=== PATIENT | male | born 1970 | race Caucasian/White ===

== ENCOUNTER → 2016-08-14 | Outpatient (CLI) | payer BC ==
[~2016-08-14] MED LIST: AMLO-110 PO; ASPI81TA28 PO; ATOR-24 PO; ISOS30TA3 PO; METO25TA56 PO; OMEG10007 PO
== END | disposition home or self-care (01) ==
LOC: C.LAB 19:14
PROVIDERS: ATTEND Family Medicine
DX: R07.9 Chest pain, unspecified (principal)

== ENCOUNTER 2021-05-09 15:43 | Observation (INO) ==
[2021-05-09 16:22] LABS: Basophils # (auto) 0.04 K/uL (0-0.2); Basophils % (auto) 0.7 %; Eosinophils # (auto) 0.06 K/uL (0-0.5); Eosinophils % (auto) 1.1 %; Hematocrit (blood only) 43.8 % (42-52); Hemoglobin 16.1 g/dL (14.0-18.0); Immature Granulocytes # (auto) 0.02 K/uL (0.00-0.02); Immature Granulocytes % (auto) 0.4 %; Lymphocytes # (auto) 1.18 K/uL (1.2-3.4); Lymphocytes % (auto) 21.7 %; Mean Corpuscular Hemoglobin 32.1 pg (25-34); Mean Corpuscular Hgb Conc 36.8 g/dL (32-36); Mean Corpuscular Volume 87.3 fL (80-100); Mean Platelet Volume 11.8 fL (7.4-10.4); Monocytes # (auto) 0.37 K/uL (0.11-0.59); Monocytes % (auto) 6.8 %; Neutrophils # (auto) 3.76 K/uL (1.4-6.5); Neutrophils % (auto) 69.3 %; Platelet Count 180 K/uL (130-400); RDW Coefficient of Variation 12.6 % (11.5-14.5); RDW Standard Deviation 39.9 fL (36.4-46.3); Red Blood Count 5.02 M/uL (4.7-6.1); White Blood Count 5.43 K/uL (4.8-10.8)
[2021-05-09 16:47] LABS: Appearance Urine Clear (Clear); Bilirubin Urine Negative (Negative); Blood Urine Negative (Negative); Color Urine Yellow; Glucose Urine UA 3+ (Negative); Ketones Urine Trace (Negative); Leukocyte Esterase Urine Negative (Negative); Nitrite Urine Negative (Negative); Protein Urine Negative (Negative); Specific Gravity Urine 1.039 (1.000-1.030); Urobilinogen Urine Negative (Negative); pH Urine 5.5 (4.5-7.5)
[2021-05-09 16:49] LABS: Albumin Globulin Ratio 1.5 (0.9-2); Albumin Level 4.6 gm/dl (3.4-5.0); BUN Creatinine Ratio 16.8 (10-20); Calcium 9.5 mg/dl (8.5-10.1); Creatinine Clr Calc Pharmacy 100.4 ml/min; Est GFR (African American) 86.1 ml/min; Est GFR (Non-African American) 74.3 ml/min; Potassium 4.4 mmol/L (3.5-5.1); Total Protein 7.6 gm/dl (6.0-8.3)
--- NOTE | 2021-05-09 17:59 | Emergency Department Note ---
Impression & Plan Acute hyperglycemia, Hx of CABG, Increased thirst, Hyponatremia ED Provider Note NAME: GURU DAVIS AGE: 50 SEX: M : 1970 ARRIVES VIA: Walk-In INFORMANT: Patient, ED PROVIDER(S): Marcos Asencio MD Chief Complaint: Hyperglycemia HPI: Patient presents due to concern for hypoglycemia. The patient has been having increasing thirst and drinking water and a friend suggested that he check his blood sugar. The patient checked this and noticed that was greater than 600. Presenting here to the emergency department the patient's blood sugar was greater than 500. Patient denies any infectious symptoms. The patient does have a prior history of Hodgkin lymphoma status post radiation and surgical treatment. Patient is a non-smoker but does chew tobacco. Patient does drink occasional alcohol with denies any drug use. Patient denies any fevers chills chest pain shortness of breath nausea or vomiting. Patient denies any infectious symptoms. The patient denies any prior history of autoimmune disor bj. Patient denies any leg swelling. ROS: See HPI for pertinent positives and negatives. A total of 10 systems were reviewed and otherwise negative. Past medical history: See below Surgical history: See below Social history: See below Physical Exam: GENERAL: NAD, wearing a mask, non-toxic. EYE EXAM: Normal conjunctiva. PERRL, no anisocoria and EOM's grossly intact w/o pain. NECK: Supple, no nuchal rigidity, no adenopathy, non-tender. No signs of meningismus. LUNGS: Clear to auscultation. Normal chest wall mechanics. HEART: NSR, no MRG. ABDOMEN: Abdomen soft, non-tender, normo-active bowel sounds, no masses, no rebound or guarding. BACK: No CVA TTP. SKIN: No rashes and no bruising. UPPER EXTREMITIES: Upper extremities are grossly normal. LOWER EXTREMITIES: Grossly normal, no edema. NEURO EXAM: A&O x3, cranial nerves II-XII grossly intact, normal speech, moves all 4 extremities on command w/o issue. Differential diagnoses: Diabetes, infection, dehydration, metabolic abnormality, hypo/hyperglycemia, electrolyte disturbance, anemia, hypoxia, cardiac sources, intracerebral event, toxicologic, neurologic, as well as other pathologies. Course: Patient was seen and evaluated the bedside. Full history physical exam was performed. EKG interpreted by me Sinus tachycardia, rate of 101, normal intervals, left axis deviation, no obvious ST elevations. Imaging Studies: See Below Cardiac monitoring: An order was placed for continuous cardiac monitoring. The monitor shows a rate of 82 with sinus rhythm. MDM: Patient presented due to concern for hyperglycemia. The patient did have a BSG completed triage which was greater than 500. I did order blood work in addition to IV fluids and insulin. Patient was initially ordered 10 of IV insulin but I did asked the nurse to recheck his BSG given that it had been 2 hours since he had a checked in triage. Repeat shows he is at 400. I did change his order to only give 5 units which the nurse understood. I did speak with the on-call hospitalist given the new onset diabetes. Patient was admitted to medicine service by Dr. Manuel. Past Med/Surg History Medical History CAD (coronary artery disease) CAD (coronary artery disease), [place] coronary artery CHF (congestive heart failure) Chronic lung disease HLD (hyperlipidemia) Hodgkin lymphoma HTN (hypertension) Hypothyroidism Reactive airway disease Surgical History H/O heart artery stent mutiple H/O heart artery stent History of cardiac cath Hx of CABG times two vessels Family History Mother Multiple sclerosis Social History Smoking Status: Never smoker Hx Alcohol Use: No Hx Substance Use: No Preferred Language: Trinidadian Communication Ability: Effective [employer] Required: No Beliefs That Will Affect Care: Latter Day L[employer] Day Beliefs: Alevism marital status: Current Living Situation: Spouse and Family Feels Safe at Home: Yes Assistive Devices: None Allergies Allergies Allergy/AdvReac Type Severity Reaction Status Date / Time TAMIA Inhibitors Allergy Intermediate Cough Verified 05/09/21 18:16 Home Meds Home Medications Medication Instructions Recorded Confirmed amlodipine 5 mg tablet 5 mg PO DAILY 12/12/17 05/09/21 atorvastatin 40 mg tablet 40 mg PO DAILY 12/12/17 05/09/21 isosorbide mononitrate 120 mg 120 mg PO DAILY 12/12/17 05/09/21 tablet,extended release 24 hr levothyroxine 125 mcg tablet 125 mcg PO DAILY 12/12/17 05/09/21 nitroglycerin 0.4 mg sublingual 0.4 mg SUBLINGUAL DIRECTED PRN 08/18/18 05/09/21 tablet omega-3 acid ethyl esters 1 gram 2 g PO DAILY 08/18/18 05/09/21 capsule (Lovaza) aspirin 81 mg tablet 81 mg PO DAILY 05/09/21 05/09/21 bupropion HCl 300 mg 24 hr tablet, 300 mg PO DAILY 05/09/21 05/09/21 extended release sertraline 100 mg tablet 200 mg PO DAILY 05/09/21 05/09/21 Results & Data (ED) Vital Signs Vital Signs - 24 hr 05/09/21 15:48 05/09/21 17:54 05/09/21 19:08 Temperature 36.8 C Temperature Source Oral Pulse Rate 108 H Pulse Rate [Apical] 98 H 88 Pulse Rhythm [Apical] Regular Respiratory Rate 18 16 16 Respiratory Effort / Characteristics Non-Labored Spontaneous Respiratory Depth Normal Normal Normal Respiratory Pattern Regular Blood Pressure 149/93 H Blood Pressure Mean 111 Blood Pressure Position Sitting Pulse Oximetry 99 94 96 Oxygen Delivery Method Room Air Room Air Room Air Sepsis Recent Fever Within 48 Hours No Sepsis New/Unexplained Change in Mental Status N/A Sepsis Action Taken by Nursing No Action Required Home Medications Current Medication List: was personally reviewed by me Laboratory Data Attestation: I reviewed the patient's lab results. Result diagrams: 05/09/21 16:07 05/09/21 16:07 Lab Results 05/09/21 05/09/21 05/09/21 Range/Units 16:07 16:07 16:12 WBC 5.43 (4.8-10.8) K/uL RBC 5.02 (4.7-6.1) M/uL Hgb 16.1 (14.0-18.0) g/dL Hct 43.8 (42-52) % MCV 87.3 (80-100) fL MCH 32.1 (25-34) pg MCHC 36.8 H (32-36) g/dL RDW Std Deviation 39.9 (36.4-46.3) fL RDW Coeff of Dania 12.6 (11.5-14.5) % Plt Count 180 (130-400) K/uL MPV 11.8 H (7.4-10.4) fL Immature Gran % (Auto) 0.4 % Neut % (Auto) 69.3 % Lymph % (Auto) 21.7 % [place] % (Auto) 6.8 % Eos % (Auto) 1.1 % Baso % (Auto) 0.7 % Neut # (Auto) 3.76 (1.4-6.5) K/uL Lymph # (Auto) 1.18 L (1.2-3.4) K/uL [place] # (Auto) 0.37 (0.11-0.59) K/uL Eos # (Auto) 0.06 (0-0.5) K/uL Baso # (Auto) 0.04 (0-0.2) K/uL Immature Gran # (Auto) 0.02 (0.00-0.02) K/uL Sodium 129 L (136-145) mmol/L Potassium 4.4 (3.5-5.1) mmol/L Chloride 94 L (98-107) mmol/L Carbon Dioxide 26 (21-32) mmol/L Anion Gap 9 (3-11) BUN 19 (6-23) mg/dl Creatinine 1.13 (0.6-1.4) mg/dl Est Cr Clr Drug Dosing 100.4 ml/min Est GFR ( Amer) 86.1 ml/min Est GFR (Non-Af Amer) 74.3 ml/min BUN/Creatinine Ratio 16.8 (10-20) Glucose 565 H* (70-99(Fasting)) mg/dl POC Glucose (70-99) mg/dl Calcium 9.5 (8.5-10.1) mg/dl Total Bilirubin 1.0 (0.2-1.0) mg/dl AST 20 (13-39) U/L ALT 40 (7-52) U/L Alkaline Phosphatase 90 (34-104) U/L Total Protein 7.6 (6.0-8.3) gm/dl Albumin 4.6 (3.4-5.0) gm/dl Globulin 3.0 (2.5-4.0) gm/dl Albumin/Globulin Ratio 1.5 (0.9-2) Urine Color Yellow Urine Appearance Clear (Clear) Urine pH 5.5 (4.5-7.5) Ur Specific [place] 1.039 H (1.000-1.030) Urine Protein Negative (Negative) Urine Glucose (UA) 3+ H (Negative) Urine Ketones Trace H (Negative) Urine Blood Negative (Negative) Urine Nitrite Negative (Negative) Urine Bilirubin Negative (Negative) Urine Urobilinogen Negative (Negative) Ur Leukocyte Esterase Negative (Negative) 05/09/21 05/09/21 Range/Units 18:13 20:03 WBC (4.8-10.8) K/uL RBC (4.7-6.1) M/uL Hgb (14.0-18.0) g/dL Hct (42-52) % MCV (80-100) fL MCH (25-34) pg MCHC (32-36) g/dL RDW Std Deviation (36.4-46.3) fL RDW Coeff of Dania (11.5-14.5) % Plt Count (130-400) K/uL MPV (7.4-10.4) fL Immature Gran % (Auto) % Neut % (Auto) % Lymph % (Auto) % [place] % (Auto) % Eos % (Auto) % Baso % (Auto) % Neut # (Auto) (1.4-6.5) K/uL Lymph # (Auto) (1.2-3.4) K/uL [place] # (Auto) (0.11-0.59) K/uL Eos # (Auto) (0-0.5) K/uL Baso # (Auto) (0-0.2) K/uL Immature Gran # (Auto) (0.00-0.02) K/uL Sodium (136-145) mmol/L Potassium (3.5-5.1) mmol/L Chloride (98-107) mmol/L Carbon Dioxide (21-32) mmol/L Anion Gap (3-11) BUN (6-23) mg/dl Creatinine (0.6-1.4) mg/dl Est Cr Clr Drug Dosing ml/min Est GFR ( Amer) ml/min Est GFR (Non-Af Amer) ml/min BUN/Creatinine Ratio (10-20) Glucose (70-99(Fasting)) mg/dl POC Glucose 434 H* 314 H* (70-99) mg/dl Calcium (8.5-10.1) mg/dl Total Bilirubin (0.2-1.0) mg/dl AST (13-39) U/L ALT (7-52) U/L Alkaline Phosphatase (34-104) U/L Total Protein (6.0-8.3) gm/dl Albumin (3.4-5.0) gm/dl Globulin (2.5-4.0) gm/dl Albumin/Globulin Ratio (0.9-2) Urine Color Urine Appearance (Clear) Urine pH (4.5-7.5) Ur Specific [place] (1.000-1.030) Urine Protein (Negative) Urine Glucose (UA) (Negative) Urine Ketones (Negative) Urine Blood (Negative) Urine Nitrite (Negative) Urine Bilirubin (Negative) Urine Urobilinogen (Negative) Ur Leukocyte Esterase (Negative) Administered Medications Discontinued Medications Sodium Chloride (Nss 1000ml) 1,000 mls @ 999 mls/hr IV .Q1H1M ONE Stop: 05/09/21 19:07 Last Infusion: 05/09/21 20:24 Dose: 0 mls/hr Documented by: [id number] Admin: 05/09/21 18:43 Dose: 999 mls/hr Documented by: [id number] Insulin Human Regular (Novolin-R Insulin Per Unit Charge) 10 units IV NOW STA Stop: 05/09/21 18:08 Last Admin: 05/09/21 18:45 Dose: Not Given Documented by: [id number] Insulin Human Regular (Novolin-R Insulin Per Unit Charge) 5 units IV NOW STA Stop: 05/09/21 18:27 Last Admin: 05/09/21 18:42 Dose: 5 units Documented by: [id number] Cosigned by: [id number] Discharge Plan Visit Data Chief Complaint: Hyperglycemia Stated Complaint: SUGAR IS 600 ED Provider: Marcos Asencio Discharge Problem: Acute hyperglycemia, Hx of CABG, Increased thirst, Hyponatremia Patient Disposition: Admitted As Inpatient Discharge Instructions Interventions: ED Discharge Assessment Last Done: 05/09/21 22:02
[2021-05-09] MEDS ORDERED: SODIUM CHLORIDE 0.9% 1000ML 1,000 ML IV ONE (18:07)
[2021-05-09] MEDS ORDERED: NovoLIN-R INSULIN PER UNIT CHARGE IV STA ×2 (18:07→18:26)
--- NOTE | 2021-05-09 20:40 | History & Physical Report ---
Date of Service May 09, 2021 Assessment & Plan (1) Diabetes mellitus: Plan: New onset of Diabetes- likely type II - BG 565 on admission- no gap, normal HC03 - trace ketones in urine - C- peptide, insulin antibodies - 15 units insulin IV by EMD - 1 liter crystalloid - Continue LR overnight - Aspart sliding scale - CF 20; carb ration 1:12 - Diabetes education in morning - Insulin home dosing- defer to [place] - HGB A1c in am - lipids panel in the morning (2) Reactive airway disease: Plan: Secondary to radiation from his Hodgkin lymphoma - Has albuterol at home- does not use and symptoms well controlled - Spirometry performed 07/08- mild obstructive disease - No longer on Advair (3) Hodgkin lymphoma: Plan: In 1991- follows with [facility] [place]- [facility] (4) Hx of CABG: Plan: cardiac catheterization age 30, requiring PCI, then requiring another PCI, on several different occasions. Eventually, he was diagnosed with proximal LAD disease and underwent CABG x2 in 2008 utilizing vein grafts. - Follows with [facility] [place] cardiology for follow up and caths - Denies any current anginal symptoms - Continue statin, continue isosorbide, continue asa 81mg daily (5) HLD (hyperlipidemia): Plan: As above (6) HTN (hypertension): Plan: As above- controlled (7) H/O heart artery stent: Plan: PCI to RCA with in stent stenosis As aobve (8) Depression: Plan: - Sertraline 200mg PO daily - Buproprion 300mg PO daily Medication list reviewed from February 07- no longer on Lamotrigine (9) Hypothyroidism: Plan: Check TSH Continue home levothyroxine History of Present Illness Primary Care Provider: Jovanny Deras 50 YOM with past medical history of: Hodgkin Lymphoma 1991 s/p radiation, also had post radiation effects to his lungs as well as cardiac, requiring CABG(SVG, LAD, Om2) and stenting to RCA with re-stenosis- He had cath done in 2018 here but gets majority of his care at [facility] [place], also hx of HTN, HLD, Hypothyroidism, current smokeless tobacco user, depression. Patient comes to the EMD today secondary to checking his blood glucose at his friend's house noting that his BG was reading as 600. He has been having increase in thirst and polyuria for the past month. He feels his appetite has been the same. He has no abdominal pain or nausea/vomiting, no recent changes in medication. In the EMD the patient was noted to have a BG of 565, his BMP did not have an anion gap and his HCo3 was 26. CBC is normal and UA is negative. Patient was given 15 units of Regular Insulin IV and 1 liter of crystalloid in the EMD. Hospitalist was notified for admission. Patient originally wanted to leave to go home and have his workup done by his PCP tomorrow. Was able to discuss with the patient the need to stay for starting his insulin, dosing, and education as well as supplies/ordering while in house. Patient finally agreed to stay, but would like to be discharged early in the morning. He understands that efforts will be made to accomplish this but unable to promise this. Patient with new onset of diabetes likely type II with elevation of his glucose and no ketosis. COVID test on admission is: NEGATIVE Allergies Allergy/AdvReac Type Severity Reaction Status Date / Time TAMIA Inhibitors Allergy Intermediate Cough Verified 05/09/21 18:16 Home Medications Medication Instructions Recorded Confirmed Type amlodipine 5 mg tablet 5 mg PO DAILY 12/12/17 05/09/21 History atorvastatin 40 mg tablet 40 mg PO DAILY 12/12/17 05/09/21 History isosorbide mononitrate 120 mg 120 mg PO DAILY 12/12/17 05/09/21 History tablet,extended release 24 hr levothyroxine 125 mcg tablet 125 mcg PO DAILY 12/12/17 05/09/21 History nitroglycerin 0.4 mg sublingual 0.4 mg SUBLINGUAL DIRECTED PRN 08/18/18 05/09/21 History tablet omega-3 acid ethyl esters 1 gram 2 g PO DAILY 08/18/18 05/09/21 History capsule (Lovaza) aspirin 81 mg tablet 81 mg PO DAILY 05/09/21 05/09/21 History bupropion HCl 300 mg 24 hr tablet, 300 mg PO DAILY 05/09/21 05/09/21 History extended release sertraline 100 mg tablet 200 mg PO DAILY 05/09/21 05/09/21 History Past Med/Surg History Medical History (Updated 05/09/21 @ 21:39 by Rita Manuel MD) CAD (coronary artery disease) CAD (coronary artery disease), [place] coronary artery CHF (congestive heart failure) Chronic lung disease HLD (hyperlipidemia) Hodgkin lymphoma HTN (hypertension) Hypothyroidism Reactive airway disease Surgical History H/O heart artery stent mutiple H/O heart artery stent History of cardiac cath Hx of CABG times two vessels Family History Mother Multiple sclerosis Social History Smoking Status: Never smoker Hx Alcohol Use: No Hx Substance Use: No Preferred Language: Singaporean Communication Ability: Effective 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 Beliefs That Will Affect Care: Denominational Denominational Beliefs: Roman Catholic marital status: Current Living Situation: Spouse and Family Feels Safe at Home: Yes Assistive Devices: None Review of Systems Review of Systems: REVIEW OF SYSTEMS: Constitutional: (+) increase thirst and urination, No fever, sweats or chills Eyes: No diplopia, no worsening or blurred vision ENT: normal hearing, no trouble swallowing Respiratory: No cough, sputum, dyspnea at rest or on exertion Cardiovascular: No chest pain, tightness or palpitations Abdomen: (+) constipation, No pain, nausea, vomiting, diarrhea Musculoskeletal: No joint pain, calf pain, swelling Neurologic: No weakness, numbness/tingling, or balance problems Psychiatric: (+) depression Skin: No rash or itch Physical Exam Physical Exam: PHYSICAL EXAM: General: awake, alert, no apparent distress Head: Normocephalic, atraumatic ENT: PERRL, EOMI, no pharyngeal exudate, mucous membranes moist Neuro: AAO x 3, speech clear and appropriate, strength intact bilaterally 5/5, sensation intact and equal all extremities and dermatomes, no pronator drift Chest: equal rise and fall of the chest, no accessory muscle use, no heaves or thrills, Clear to auscultation, on room air, Cardiac: Regular rate and rhythm, telemetry reviewed, skin warm dry, cap refill <3 seconds, peripheral pulses +2 no JVD, no murmur, no edema GI: NABS x 4 quadrants, soft, nontender to palpation, no rebound, guarding or tenderness : Spontaneously voiding, no pain, no CVA tenderness, Extremities: Normal inspection, no peripheral edema or erythema, calfs nontender to palpation Psych: irritated that he staying overnight in hospitaol, Normal mood and affect on presentation Skin: no rash or erythema Results & Data Results & Data ([facility]) Vital Signs (Past 12 Hours) Vital Signs Temp Pulse Pulse Resp BP Pulse Ox 05/09/21 19:08 88 16 96 05/09/21 17:54 98 H 16 94 05/09/21 15:48 36.8 C 108 H 18 149/93 H 99 Laboratory Results Abnormal lab results 05/09/21 05/09/21 05/09/21 Range/Units 16:07 16:07 16:12 MCHC 36.8 H (32-36) g/dL MPV 11.8 H (7.4-10.4) fL Lymph # (Auto) 1.18 L (1.2-3.4) K/uL Sodium 129 L (136-145) mmol/L Chloride 94 L (98-107) mmol/L Glucose 565 H* (70-99(Fasting)) mg/dl POC Glucose (70-99) mg/dl Ur Specific [place] 1.039 H (1.000-1.030) Urine Glucose (UA) 3+ H (Negative) Urine Ketones Trace H (Negative) 05/09/21 05/09/21 Range/Units 18:13 20:03 MCHC (32-36) g/dL MPV (7.4-10.4) fL Lymph # (Auto) (1.2-3.4) K/uL Sodium (136-145) mmol/L Chloride (98-107) mmol/L Glucose (70-99(Fasting)) mg/dl POC Glucose 434 H* 314 H* (70-99) mg/dl Ur Specific [place] (1.000-1.030) Urine Glucose (UA) (Negative) Urine Ketones (Negative) Medications Administered Discontinued Medications Sodium Chloride (Nss 1000ml) 1,000 mls @ 999 mls/hr IV .Q1H1M ONE Stop: 05/09/21 19:07 Last Infusion: 05/09/21 20:24 Dose: 0 mls/hr Documented by: [id number] Admin: 05/09/21 18:43 Dose: 999 mls/hr Documented by: [id number] Insulin Human Regular (Novolin-R Insulin Per Unit Charge) 10 units IV NOW STA Stop: 05/09/21 18:08 Last Admin: 05/09/21 18:45 Dose: Not Given Documented by: [id number] Insulin Human Regular (Novolin-R Insulin Per Unit Charge) 5 units IV NOW STA Stop: 05/09/21 18:27 Last Admin: 05/09/21 18:42 Dose: 5 units Documented by: [id number] Cosigned by: [id number] ECG Additional Comments: Sinus tachycardia Possible Left atrial enlargement Left anterior fascicular block Left ventricular hypertrophy with QRS widening Abnormal ECG When compared with ECG of 03-NOV-2018 14:09, QRS duration has increased Code Status & VTE Plan Code Status CODE: FULL VTE: SCDS, ambulation VTE Prophylaxis Plan VTE Prophylaxis will be ordered: Yes Supervising Physician Co-Signing Physician Notes PRE SALES TECHNICAL CONSULTANT Supervision note: I have personally seen and examined the patient and discussed and verified the matthews points of the history and physical along with the plan with JINNY Browne with the following exceptions and/or additions: This patient is a 50-year-old male with history of CAD, reactive airway disease, Hodgkin's lymphoma status post radiation to the neck and chest, hypothyroidism, hyperlipidemia, anxiety here with polydipsia and polyuria with significant hyperglycemia. No evidence of DKA. He has noticed excessive thirst and uri nating and some weight loss over the last couple of months. He reports his fasting blood sugar last year as an outpatient was 110. Denies any abdominal pain or nausea, no changes in bowel habits, no difficulty with urination. No chest pain or shortness of breath. He has chronic wheezing History and ROS reviewed as above Vitals reviewed Gen: AAOx3, NAD, obese HEENT: Anicteric sclerae, EOMI CV: RRR no mgr nl S1S2 Pulm: Some inspiratory and expiratory wheezing Abd: +BS soft NT ND no masses or hernias Ext: No edema Skin: No rashes, warm/dry Neuro: Full strength throughout Labs and rads reviewed, ECG reviewed Admit for hyperglycemia, diabetes education, start insulin Recommend starting Metformin on discharge as well Recommend weight loss, low carbohydrate diet Check hemoglobin A1c and lipid panel in the morning PG Care Time/CCT Total # of Minutes Spent Total Time Spent with Patient: Total time spent is greater than 50% in coordination of care (as documented) at patient's floor/unit and/or counseling patient: Coding Level of Care Code INT OBSERVATION CARE 70M LVL 3 Diagnoses Diabetes mellitus E11.9 Reactive airway disease J45.909 Hodgkin lymphoma C81.90 Hx of CABG Z95.1 HLD (hyperlipidemia) E78.5 HTN (hypertension) I10 H/O heart artery stent Z95.5 Depression F32.A Hypothyroidism E03.9
[2021-05-09] MEDS ORDERED: Nursing to Pharmacy Communication SCH (21:00)
[2021-05-09] MEDS ORDERED: INSULIN ASPART PER UNIT SC ONE (21:45)
[2021-05-09] MEDS ORDERED: ONDANSETRON INJ 2 MG/ML 2 ML VIAL IV PRN (22:27)
[2021-05-09] MEDS ORDERED: CARBOHYDRATES FOR HYPOGLYCEMIA PO PRN (22:27)
[2021-05-09] MEDS ORDERED: GLUCOSE 40% GEL 15 GM TUBE PO PRN (22:27)
[2021-05-09] MEDS ORDERED: GLUCAGON FOR INJ 1 MG VIAL SQ PRN (22:27)
[2021-05-09] MEDS ORDERED: DEXTROSE 50% 50 ML SYRINGE IV PRN (22:27)
[2021-05-09] MEDS ORDERED: GLUCOSE 10 TABS/TUBE PO PRN (22:27)
[2021-05-09] MEDS ORDERED: NITROGLYCERIN SL 0.4 MG/TAB TAB SL PRN (22:27)
[2021-05-09] MEDS ORDERED: ACETAMINOPHEN 325 MG TAB PO PRN (22:27)
[2021-05-09] MEDS: LACTATED RINGER'S 1,000 ML IV SCH (23:07)
[2021-05-10] MEDS ORDERED: PHARMACY GLYCEMIC MGMT CONSULT PRN (01:49)
[2021-05-10] MEDS ORDERED: INSULIN ASPART PER UNIT SC ONE (02:15)
[2021-05-10] MEDS ORDERED: INSULIN GLARGINE SOLOSTAR 100 UNITS/ML 3 ML PEN SC ONE (02:15)
[2021-05-10] MEDS ORDERED: LEVOTHYROXINE SODIUM 125 MCG TABLET PO SCH (06:30)
[2021-05-10] MEDS ORDERED: INSULIN ASPART PER UNIT SC SCH (07:30)
[2021-05-10] MEDS ORDERED: buPROPion XL 300 MG TABCR PO SCH (09:00)
[2021-05-10] MEDS ORDERED: amLODIPine BESYLATE 5 MG TAB PO SCH (09:00)
[2021-05-10] MEDS ORDERED: SERTRALINE HCL 100 MG TABLET PO SCH (09:00)
[2021-05-10] MEDS ORDERED: ATORVASTATIN 40 MG TAB PO SCH (09:00)
[2021-05-10] MEDS ORDERED: ISOSORBIDE MONO EXTENDED REL 60 MG TABCR PO SCH (09:00)
[2021-05-10] MEDS ORDERED: ASPIRIN 81 MG ECTAB PO SCH (09:00)
[2021-05-10] MEDS: LACTATED RINGER'S 1,000 ML IV SCH (09:11)
[2021-05-10 09:29] LABS: Basophils # (auto) 0.04 K/uL (0-0.2); Eosinophils % (auto) 2.5 %; Hematocrit (blood only) 40.8 % (42-52); Hemoglobin 14.4 g/dL (14.0-18.0); Immature Granulocytes # (auto) 0.02 K/uL (0.00-0.02); Immature Granulocytes % (auto) 0.5 %; Lymphocytes # (auto) 0.94 K/uL (1.2-3.4); Lymphocytes % (auto) 23.8 %; Mean Corpuscular Hemoglobin 31.1 pg (25-34); Mean Corpuscular Hgb Conc 35.3 g/dL (32-36); Mean Corpuscular Volume 88.1 fL (80-100); Mean Platelet Volume 11.3 fL (7.4-10.4); Monocytes # (auto) 0.31 K/uL (0.11-0.59); Monocytes % (auto) 7.8 %; Neutrophils # (auto) 2.54 K/uL (1.4-6.5); Neutrophils % (auto) 64.4 %; Platelet Count 146 K/uL (130-400); RDW Coefficient of Variation 12.8 % (11.5-14.5); RDW Standard Deviation 40.9 fL (36.4-46.3); Red Blood Count 4.63 M/uL (4.7-6.1); White Blood Count 3.95 K/uL (4.8-10.8)
[2021-05-10 09:52] LABS: BUN Creatinine Ratio 19.2 (10-20); Chol HDL Ratio 4.5 (0-5); Est GFR (African American) 120.3 ml/min; Est GFR (Non-African American) 103.8 ml/min; Magnesium 1.9 mg/dl (1.7-2.4); Potassium 3.6 mmol/L (3.5-5.1)
[2021-05-10 10:17] LABS: Estimated Average Glucose 252 mg/dl; Hemoglobin A1C 10.4 % (4.5-5.6)
--- NOTE | 2021-05-10 11:49 | Discharge Summary ---
Date of Service May 10, 2021 Admission HPI Per Admitting Provider 50 YOM with past medical history of: Hodgkin Lymphoma 1991 s/p radiation, also had post radiation effects to his lungs as well as cardiac, requiring CABG(SVG, LAD, Om2) and stenting to RCA with re-stenosis- He had cath done in 2018 here but gets majority of his care at [facility], also hx of HTN, HLD, Hypothyroidism, current smokeless tobacco user, depression. Patient comes to the EMD today secondary to checking his blood glucose at his friend's house noting that his BG was reading as 600. He has been having increase in thirst and polyuria for the past month. He feels his appetite has been the same. He has no abdominal pain or nausea/vomiting, no recent changes in medication. In the EMD the patient was noted to have a BG of 565, his BMP did not have an anion gap and his HCo3 was 26. CBC is normal and UA is negative. Patient was given 15 units of Regular Insulin IV and 1 liter of crystalloid in the EMD. Hospitalist was notified for admission. Patient originally wanted to leave to go home and have his workup done by his PCP tomorrow. Was able to discuss with the patient the need to stay for starting his insulin, dosing, and education as well as supplies/ordering while in house. Patient finally agreed to stay, but would like to be discharged early in the morning. He understands that efforts will be made to accomplish this but unable to promise this. Patient with new onset of diabetes likely type II with elevation of his glucose and no ketosis. COVID test on admission is: NEGATIVE Principal Diagnosis Type 2 diabetes mellitus Discharge Exam Constitutional WD/WN, vitals as above Eyes PERRL, conjunctivae normal, anicteric sclerae Neck trachea midline, no thyromegaly Respiratory normal respiratory effort and + cough Auscultation: + wheezes Cardiovascular RRR, no murmur, no edema Gastrointestinal (Abdomen) normal bowel sounds, soft, nontender, no hepatosplenomegaly Skin no rashes, warm and dry Neurologic moves all extremities Psychiatric A+Ox3, euthymic affect Discharge Data Allergies Allergy/AdvReac Type Severity Reaction Status Date / Time TAMIA Inhibitors Allergy Intermediate Cough Verified 05/09/21 18:16 Consultations 05/09/21 18:26 ED Decision to Admit Stat Hospital Course (1) Diabetes mellitus: (1) Diabetes mellitus: Plan: New onset of Diabetes- likely type II - BG 565 on admission- no gap, normal HC03 - trace ketones in urine - C- peptide, insulin antibodies - 15 units insulin IV by EMD - 1 liter crystalloid - Continue LR overnight - Aspart sliding scale - CF 20; carb ration 1:12 - Diabetes education in morning - Insulin home dosing- defer to rounders - HGB A1c today 10.4 Patient presented to the hospital with hyper glycemia with an A1c of 10.4. While patient was here he received insulin and a pharmacy glycemic consult. In addition patient was seen by diabetic counselor and was given information about diet, exercise, insulin, checking blood sugars, and oral medications. At the time of discharge, patient was started on Metformin and Basaglar as well as Farxiga. Patient has follow-up with PCP on 05/13/2021. There is a possibility the patient will not be able to afford Farxiga even with insurance. If this were to occur patient likely do fine on Metformin and Basaglar alone until follow-up with primary care provider who can adjust accordingly. All pertinent benefits and side effects of each medication were explained to the patient and patient was understanding and willing to take medications. Other recommendations that we had at this time was starting the patient on an TAMIA or an ARB and up dosing his atorvastatin from 40 mg to 80 mg but will leave this discretion to PCP at this time. (2) Reactive airway disease: Plan: Secondary to radiation from his Hodgkin lymphoma - Has albuterol at home- does not use and symptoms well controlled - Spirometry performed 07/08- mild obstructive disease - No longer on Advair (3) Hodgkin lymphoma: Plan: In 1991- follows with [facility]- [facility] (4) Hx of CABG: Plan: cardiac catheterization age 30, requiring PCI, then requiring another PCI, on several different occasions. Eventually, he was diagnosed with proximal LAD disease and underwent CABG x2 in 2008 utilizing vein grafts. - Follows with [facility] cardiology for follow up and caths - Denies any current anginal symptoms - Continue statin, continue isosorbide, continue asa 81mg daily (5) HLD (hyperlipidemia): Plan: As above (6) HTN (hypertension): Plan: As above- controlled (7) H/O heart artery stent: Plan: PCI to RCA with in stent stenosis As aobve (8) Depression: Plan: - Sertraline 200mg PO daily - Buproprion 300mg PO daily Medication list reviewed from February 07- no longer on Lamotrigine (9) Hypothyroidism: Plan: Check TSH Continue home levothyroxine (2) Reactive airway disease: (3) Hodgkin lymphoma: (4) Morbid obesity: (5) Acute hyperglycemia: Total Time Total Time Spent Total Time Spent (In Minutes): 30 Discharge Plan Discharge Items Patient Disposition: Home - Self-Care Reason For Visit: NEW ONSET DIABETES Discharge Diagnosis: New onset diabetes Activity: Per Instructions section Non-emergency contact: Primary Care Provider Call non-emergency contact if: you have any medication questions and your symptoms worsen Follow-up/Referrals: Jovanny Deras [Primary Care Provider] - 05/13/21 11:30 am (Appointment will be at [facility] location) Diet: Carb Consistent or DM2 Addtl Attending Provider Instructions: You were seen at the hospital for you discovering elevated blood sugars at your home. While you are here you were diagnosed with type 2 diabetes mellitus. You were seen by our museum educator who provided information regarding diet and utilizing diabetic medications. You were treated in the hospital with insulin which appropriately brought down your blood sugars, however, this is a regimen that will have to be taken home with you. You were started on diabetic medications including Metformin (pill) and Basaglar (insulin) which will likely need adjustment by your primary care provider as time goes on. Please follow-up with your primary care provider within 1 week to continue your care. It has been a pleasure to be a part of your care and we wish you the best in both your health in your recovery. Pending Studies at Discharge: Yes Studies:: Diabetic antibodies. Stand-Alone Forms: My [facility] CanDiag, Smoking Cessation Medications and DC Order Prescriptions: New metformin 500 mg tablet extended release 24 hr 500 mg PO DAILY Qty: 30 RF: 2 Farxiga 5 mg tablet 5 mg PO DAILY Qty: 30 RF: 2 Basaglar KwikPen U-100 Insulin 100 unit/mL (3 mL) insulin pen 20 unit subcut DAILY Qty: 15 RF: 2 (DME) pen needle, diabetic [Pen Needle] 32 gauge x 5/32" needle See Rx Instructions .Route Qty: 100 RF: 0 (DME) OneTouch Verio test strips Strip See Rx Instructions .Route Qty: 100 RF: 0 (DME) lancets [OneTouch Delica Lancets] 33 gauge misc See Rx Instructions .Route Qty: 100 RF: 0 Continued atorvastatin 40 mg Tablet 40 mg PO DAILY RF: 0 amlodipine 5 mg Tablet 5 mg PO DAILY RF: 0 isosorbide mononitrate 120 mg Tablet Extended Release 24 Hr 120 mg PO DAILY RF: 0 levothyroxine 125 mcg Tablet 125 mcg PO DAILY RF: 0 nitroglycerin 0.4 mg tablet, sublingual 0.4 mg sublingual DIRECTED PRN (Reason: Chest Pain) RF: 0 omega-3 acid ethyl esters [Lovaza] 1 gram Capsule 2 g PO DAILY RF: 0 bupropion HCl 300 mg tablet extended release 24 hr 300 mg PO DAILY RF: 0 sertraline 100 mg tablet 200 mg PO DAILY RF: 0 aspirin 81 mg tablet 81 mg PO DAILY RF: 0 Discharge Orders: Discharge Order (Routine); Ordered 05/10/21 Ordered By: Kirt Wadsworth/Other Patient Handouts: High Blood Sugar (Hyperglycemia) Admission Data Admit Date/Time: 05/09/21 20:33 Attending Provider: Boo Woodson Admit Provider: Rita Manuel Primary Care Provider: Jovanny Deras Other Providers: Rita Manuel Other Interventions: Discharge Summary Assessment (RN) Last Done: 05/10/21 11:55 Supervising Physician Co-Signing Physician Notes Attending attestation Pt seen and examined in concert with Dr. Aldana. In agreement with the documented findings as noted in the resident documentation with any exceptions or additions as noted here. Resting comfortably in bed without acute complaint at present. On examination, S1/S2 nl RRR no MCG. CTAB. Abd NT/ND BS+ve Type 2 diabetes, uncontrolled with keturia - patient eschews further admission for close outpatient follow up - triple regimen recommended as noted above with close follow up Saturday @ 1130 with PCP. Counseling re: precautions and hypoglycemia with need for lifestyle modifications and medical support as well as FSBS checking. Else see resident documentation as noted. Total attending time spent on this patient's care on the day of discharge: 35 minutes.
--- NOTE | 2021-05-10 13:47 | Electrocardiogram Report ---
Test Reason : Blood Pressure : / mmHG Vent. Rate : 101 BPM Atrial Rate : 101 BPM P-R Int : 148 ms QRS Dur : 116 ms QT Int : 354 ms P-R-T Axes : 044 -63 052 degrees QTc Int : 459 ms Sinus tachycardia Possible Left atrial enlargement Left anterior fascicular block possibly Left ventricular hypertrophy with QRS widening Abnormal ECG When compared with ECG of 03-NOV-2018 14:09, QRS duration has increased Confirmed by Herman Dent ([id number]) on 05/10/2021 1:47:11 PM Referred By: Brittnee Deras Confirmed By:Corbin Dent
== END 2021-05-10 12:23 | disposition home or self-care (01) ==
LOC: 3E 15:43 → ED 15:43 → SUATTDRO 20:33 → 3E 22:02
DX: E11.9 Type 2 diabetes mellitus without complications; E78.5 Hyperlipidemia, unspecified; J45.909 Unspecified asthma, uncomplicated; I50.9 Heart failure, unspecified; C81.90 Hodgkin lymphoma, unspecified, unspecified site; F32.A Depression, unspecified; Z79.899 Other long term (current) drug therapy; Z88.8 Allergy status to other drugs, medicaments and biological substances; E03.9 Hypothyroidism, unspecified; Z79.82 Long term (current) use of aspirin; Z95.1 Presence of aortocoronary bypass graft; Z95.5 Presence of coronary angioplasty implant and graft; I11.0 Hypertensive heart disease with heart failure

== ENCOUNTER 2022-02-22 15:11 | Inpatient (IN) ==
[2022-02-22] MEDS ORDERED: HEPARIN SOD (PORCINE) 1000 UNIT/ML IV ONE (15:16)
[2022-02-22] MEDS ORDERED: TICAGRELOR 90 MG TAB PO ONE (15:16)
[2022-02-22] MEDS ORDERED: fentaNYL citrate 100 MCG/2 ML VIAL IV STA (15:17)
[2022-02-22] MEDS ORDERED: ONDANSETRON INJ 2 MG/ML 2 ML VIAL IV STA (15:17)
[2022-02-22] MEDS ORDERED: fentaNYL citrate 100 MCG/2 ML VIAL ONE ×2 (15:18→15:24)
[2022-02-22] MEDS ORDERED: HEPARIN (PORCINE) 1000 UNIT/ML 10 ML (CATH LAB USE ONLY) ONE (15:23)
[2022-02-22] MEDS ORDERED: niCARdipine HCL INJ 2.5 MG/ML 10 ML AMP ONE (15:23)
[2022-02-22] MEDS ORDERED: MIDAZOLAM HCL 1 MG/ML 2ML VIAL ONE (15:24)
[2022-02-22 15:38] LABS: iSTAT Creatinine 1.2 mg/dl (0.6-1.3); iSTAT Hemoglobin 15.6 g/dl (14.0-18.0); iSTAT Ionized Calcium 1.14 mmol/l (1.12-1.32); iSTAT Potassium 4.6 mmol/L (3.3-5.0)
[2022-02-22 15:48] LABS: Basophils # (auto) 0.04 K/uL (0-0.2); Basophils % (auto) 0.6 %; Eosinophils # (auto) 0.07 K/uL (0-0.50); Eosinophils % (auto) 1.1 %; Hematocrit (blood only) 44.2 % (40.1-51.0); Hemoglobin 15.6 g/dl (14.0-18.0); Immature Granulocytes # (auto) 0.11 K/uL (0.00-0.02); Immature Granulocytes % (auto) 1.7 %; Lymphocytes # (auto) 0.83 K/uL (1.2-3.4); Lymphocytes % (auto) 13.1 %; Mean Corpuscular Hemoglobin 30.4 pg (25.0-34.0); Mean Corpuscular Hgb Conc 35.3 g/dL (32.0-36.0); Mean Corpuscular Volume 86.2 fL (80.0-100.0); Mean Platelet Volume 10.5 fL (9.4-12.4); Monocytes # (auto) 0.54 K/uL (0.24-0.82); Monocytes % (auto) 8.5 %; Neutrophils # (auto) 4.73 K/uL (1.4-6.5); Platelet Count 213 K/uL (130-400); RDW Coefficient of Variation 12.5 % (11.5-14.5); RDW Standard Deviation 39.2 fL (36.4-46.3); Red Blood Count 5.13 M/uL (4.63-6.08); White Blood Count 6.32 K/ul (4.8-10.8)
--- NOTE | 2022-02-22 15:50 | XRay Report ---
XR chest 1V portable CLINICAL HISTORY: Chest pain, nonspecific TECHNIQUE: Single frontal radiograph of the chest was obtained. Comparison: Comparison is made to chest radiograph 01/08/2022 FINDINGS: Median sternotomy wires are unchanged. Fracture lines are unchanged. Plate and screw fixation hardwar e over the right clavicle is seen. The cardiomediastinal silhouette is normal. Lungs are underinflate d but clear. No evidence of pleural effusion or pneumothorax. IMPRESSION: No acute chest disease. ACT 112: Negative or not required by law. Electronically signed by: Mark Sandoval M.D. 02/22/2022 3:49 PM
--- NOTE | 2022-02-22 15:50 | History & Physical Report ---
Date of Service February 22, 2022 Assessment & Plan (1) ST elevation (STEMI) myocardial infarction: Plan: Inferior STEMI: Last cardiology note 01/2022: CAD with severe left main disease with bypass surgery 2008 with saphenous vein graft to LAD, vein graft to marginal CAD with initial RCA stent prior to 2002, repeat catheterization at [facility] with 40% in-stent thrombosis Cardiac catheterization 2013 with 90% left main lesion, 70% lesion in ramus intermedius, patent vein graft to LAD and circumflex. 30% proximal RCA stenosis and mid RCA with severe in-stent stenosis with 80% lesion for which she received drug-eluting stents. Cardiac cath 1890% RCA lesion with 30-40% in-stent restenosis of mid RCA with repeat ALEXANDER. Cardiac catheterization 07/2019 patent grafts to LAD and OM with severe ostial RCA in-stent restenosis of RCA 80%, moderate disease in mid RCA. Cardiac cath 01/2022 with PCI of both ostial and mid RCA with ALEXANDER and intravascular lithotripsy. Echo 06/2021 normal LV size and function without wall motion abnormalities. Per 01/2022 do not reduce Imdur to 30 twice daily, Ozempic continued with recommendations to uptitrate with goals of additional weight loss. Amlodipine was stopped and switched to diltiazem 180 mg. Patient felt tired on beta-blockers. Acute chest pain, heart alert History of CABG (SVG LAD/OM 2) 2008, RCA PCI with restenosis and repeat cath 2017. - TTE 06/21/2020: Normal LV size and systolic function. No regional wall motion abnormalities. EF 65%. Mild concentric LVH. Grade 1 diastolic dysfunction of the left ventricle, indeterminate left atrial pressure. Normal RV size with reduced systolic function. EKG: Inferior stemi Initial troponin: 8.6 Optimize potassium 4.0, magnesium 2.0 BNP: 40 Lipase: Normal TSH: Normal Atorvastatin, isosorbide, DAPT. Continue ozempic Ranexa 500 mg p.o. twice daily History of smokeless tobacco use S/p cath 02/22/2022. Proximal RCA in-stent thrombosis treated with angioplasty and aspiration, no new stents. Complete integrillin drip, trend trop overnight. Switch to aspirin/Brilinta DAPT in AM. Transferred to ICU for recovery. - Pt BB intolerant as outpatient and refused to take. Switched to diltiazem as outpt. Type 2 diabetes mellitus Last as outpt 6.6%, well controlled TAKER OFF on glargine 38 units daily, Ozempic. Tolerating ozempic well, resume as outpt Goal BSG [id number] - Repeat A1C pending Depression - Sertraline, buproprion discontinued per pt - Continue TAKER OFF lamotrigine Hypothyroidism TSH wnl Continue TAKER OFF Synthroid 125 mcg daily Reactive airway disease, mild obstructive lung disease 2/2 radiation therapy from Hodgkin lymphoma Albuterol as needed Previously on Advair, this was discontinued as outpatient. Follow clinically for wheezing, none on admission Hypertension Amlodipine 5 mg daily Diltiazem 180 mg p.o. daily Beta-jono interolerant per pt Losartan 25 mg daily Diet: N.p.o. CODE STATUS: Full code Disposition: ICU for cath recovery (2) Hx of CABG: (3) CHF (congestive heart failure): (4) HLD (hyperlipidemia): (5) HTN (hypertension): (6) H/O heart artery stent: (7) CAD (coronary artery disease): (8) Diabetes mellitus: (9) Depression: (10) Hypothyroidism: History of Present Illness Primary Care Provider: Jovanny Deras Tyler is a 51-year-old male with a past medical history of CABG (SVG LAD/OM 2), RCA PCI with restenosis and repeat cath 2017, hypertension, hyperlipidemia, hypothyroidism, smokeless tobacco use, Hodgkin's lymphoma s/p radiation 1991, and type 2 diabetes mellitus who presented to the hospital as a heart alert. Patient was engaged in sexual intercourse with his when he developed sudden onset sternal chest pain, 8/10 in the center of the chest with a heavy quality at time of provider assessment. Patient did receive aspirin and nitro in route to the emergency department. Was taken to [facility] emergently for PCI. Given heparin 5000 unit bolus and Brilinta 180 mg p.o. in ER. Pt seen at bedside at time of heart alert. No SoB. Pt was having intercourse and developed severe chest pain. Currently 8/10 at bedside under sternum. No LH/Dizziness. Took meds this AM. Taken urgently to labor and delivery nurse for STEMI Seen post procedure. Complete resolution of chest pain. No CP/CP/SOB/Difficulty breathing/syncope/presyncope at reassessment. Denies leg swelling, worsening angina prior to sudden CP. Notes has had several similar episodes with recurrent caths and subsequent resolution of pain in the past. NO concerns at bedside. No bleeding postop. Clarifies that he DOES take ozempic weekly, unclear of dose. Good outpt bsg control. Does NOT take BB due to tolerance, prescribed but stopped taking due to averse effects. Discussed this as outpt, switched to diltiazem on risk/beneifts discussion at apptment. No leukocytosis. Hemoglobin 15.6. Creatinine with normal baseline less than 1, admitting creatinine 1.2. Ionized calcium 1.14. Last [facility] outpatient note reviewed 10/2021:. DM2 with A1c 09/2025.6%, normal urine microalbumin. Good control on Basaglar 38 units nightly, no SGLT2 noted --> pt clarifies recently started Ozempic with good control in last 3 months. Dyslipidemia on statin Lamotrigine was restarted 10/2021 Last cardiology note 01/2022: CAD with severe left main disease with bypass surgery 2008 with saphenous vein graft to LAD, vein graft to marginal CAD with initial RCA stent prior to 2002, repeat catheterization at [facility] with 40% in-stent thrombosis Cardiac catheterization 2013 with 90% left main lesion, 70% lesion in ramus intermedius, patent vein graft to LAD and circumflex. 30% proximal RCA stenosis and mid RCA with severe in-stent stenosis with 80% lesion for which she received drug-eluting stents. Cardiac cath 20 1890% RCA lesion with 30-40% in-stent restenosis of mid RCA with repeat ALEXANDER. Cardiac catheterization 07/2019 patent grafts to LAD and OM with severe ostial RCA in-stent restenosis of RCA 80%, moderate disease in mid RCA. Cardiac cath 01/2022 with PCI of both ostial and mid RCA with ALEXANDER and intravascular lithotripsy. Echo 06/2021 normal LV size and function without wall motion abnormalities. Per 01/2022 do not reduce Imdur to 30 twice daily, Ozempic continued with recommendations to uptitrate with goals of additional weight loss. Amlodipine was stopped and switched to diltiazem 180 mg. Patient felt tired on beta-blockers. Medical History: Reviewed Medications: Reviewed Surgical History: Reviewed Allergies: Reviewed Social History: Reviewed Code Status: Reviewed Allergies Allergy/AdvReac Type Severity Reaction Status Date / Time TAMIA Inhibitors Allergy Intermediate Cough Verified 02/22/22 15:17 Home Medications Medication Instructions Recorded Confirmed Type amlodipine 5 mg tablet 5 mg PO DAILY 12/12/17 02/22/22 History atorvastatin 40 mg tablet 40 mg PO DAILY 12/12/17 02/22/22 History levothyroxine 125 mcg tablet 125 mcg PO DAILY 12/12/17 02/22/22 History nitroglycerin 0.4 mg sublingual 0.4 mg sublingual DIRECTED PRN 08/18/18 02/22/22 History tablet Chest Pain omega-3 acid ethyl esters 1 gram 2 g PO DAILY 08/18/18 02/22/22 History capsule (Lovaza) blood sugar diagnostic (OneTouch #100 ea 05/10/21 Rx Verio test strips) lancets 33 gauge (OneTouch Delica #100 ea 05/10/21 Rx Lancets) pen needle, diabetic 32 gauge x #100 ea 05/10/21 Rx 5/32" (Pen Needle) albuterol sulfate 90 mcg/actuation 2 puff inhalation DIRECTED PRN 02/22/22 02/22/22 History aerosol inhaler Shortness Of Breath aspirin 81 mg tablet,delayed 81 mg PO DAILY 02/22/22 02/22/22 History release cephalexin 500 mg capsule 2,000 mg PO DIRECTED PRN PRIOR 02/22/22 02/22/22 History TO DENTAL APPT. clopidogrel 75 mg tablet (Plavix) 75 mg PO DAILY 02/22/22 02/22/22 History diltiazem HCl 180 mg 180 mg PO DAILY 02/22/22 02/22/22 History capsule,extended release 24 hr insulin glargine 100 unit/mL (3 38 unit subcut DAILY 02/22/22 02/22/22 History mL) subcutaneous pen (Demetriaaglar KwjimenezPen U-100 Insulin) isosorbide mononitrate 30 mg 30 mg PO BID 02/22/22 02/22/22 History tablet,extended release 24 hr lamotrigine 100 mg tablet 100 mg PO DAILY 02/22/22 02/22/22 History losartan 25 mg tablet 25 mg PO DAILY 02/22/22 02/22/22 History ranolazine 500 mg tablet,extended 500 mg PO BID 02/22/22 02/22/22 History release,12 hr Past Med/Surg History Medical History CAD (coronary artery disease) CAD (coronary artery disease), [place] coronary artery CHF (congestive heart failure) Chronic lung disease HLD (hyperlipidemia) Hodgkin lymphoma HTN (hypertension) Hyponatremia Hypothyroidism Reactive airway disease Surgical History H/O heart artery stent mutiple H/O heart artery stent History of cardiac cath Hx of CABG times two vessels Family History Mother Multiple sclerosis Social History Smoking Status: Never smoker Do You Dip or Chew Tobacco: Yes; Hx Alcohol Use: No Hx Substance Use: No Preferred Language: Mexican Communication Ability: Effective Intervention Manager Required: No Beliefs That Will Affect Care: None marital status: Current Living Situation: Family Current Living Situation Comment: and son Other Information That Helps Us Care for You: No Feels Safe at Home: Yes Safety Concerns: Feels Safe At This Time Assistive Devices: None Review of Systems Review of Systems: All systems reviewed & are unremarkable except as noted in HPI & below Physical Exam Physical Exam: General: A&Ox3. NAD. Cooperative. HEENT: Atraumatic, normocephalic. Pulm: CTAB A&P. -wheezes, -rales, -rhonchi. Symmetrical chest rise. No increased work of breathing. No respiratory distress. Cardiac: RRR, -mrg. Radial pulses intact and symmetrical. Abdominal: Nontender, nondistended, soft. BS present. R femoral access site with post-access dressing in palce. No swelling/hematoma. Nontender. Ext: warm, dry no edema. Results & Data Results & Data ([facility]) Vital Signs (Past 12 Hours) Vital Signs Temp Pulse Resp BP Pulse Ox O2 Del Method O2 Flow Rate 02/22/22 15:17 36.6 C 89 20 161/95 H 94 Nasal Cannula 2 PG Care Time/CCT Total # of Minutes Spent Total Time Spent with Patient: Total time spent is greater than 50% in coordination of care (as documented) at patient's floor/unit and/or counseling patient: Coding Level of Care Code 89234 INT INP/OBS CARE 3/75MIN Diagnoses ST elevation (STEMI) myocardial infarction I21.3 Hx of CABG Z95.1 CHF (congestive heart failure) I50.9 HLD (hyperlipidemia) E78.5 HTN (hypertension) I10 H/O heart artery stent Z95.5 CAD (coronary artery disease) I25.10 Diabetes mellitus E11.9 Depression F32.A Hypothyroidism E03.9
[2022-02-22 15:58] LABS: INR 1.1 (0.9-1.1); Prothrombin Time 12.1 Seconds (9.0-12.0)
[2022-02-22] MEDS ORDERED: EPTIFIBATIDE 2 MG/ML 10 ML VIAL (CATH LAB USE ONLY) IV ONE (16:04)
[2022-02-22] MEDS ORDERED: EPTIFIBATIDE 0.75 MG/ML 75MG VIAL (CATH LAB USE ONLY) IV ONE (16:05)
--- NOTE | 2022-02-22 16:10 | Emergency Department Note ---
Impression & Plan ST elevation (STEMI) myocardial infarction, Coronary artery disease, Substernal chest pain ED Provider Note NAME: GURU DAVIS AGE: 51 SEX: M ARRIVES VIA: Ambulance INFORMANT: Patient ED PROVIDER(S): Von Price MD CHIEF COMPLAINT: Chest pain PLAN: Disposition: Admit MEDICAL DECISION MAKING: The patient is a pleasant 51-year-old gentleman with a past medical history of CAD with history of CABG and multiple PCI who presents to the emergency department via EMS for acute onset chest pain which occurred shortly after having sexual intercourse with his . Reviewed with EMS crew on medical command call and upon evaluating EKG compared to his prior heart alert was activated as EKG is consistent with inferior ST elevation OK. Patient has been given full dose aspirin by EMS in addition to nitroglycerin and morphine. When he arrived he reported a 5/10 pain. He denies any recent fevers, chills, cough, congestion. He [place] [facility] [place] Since then he denies any pattern of exertional chest pain. On arrival the patient is in no acute distress, afebrile with stable vital signs. EKG demonstrates inferior ST elevation with reciprocal depression. Chest x-ray negative for acute cardiopulmonary process. Patient was treated with 5000 units of IV heparin and ticagrelor. Dr. Harding and Panel Flow Machine Operator team evaluated the patient at the bedside, consented for intervention and patient was taken to the Panel Flow Machine Operator. Case was discussed with Dr. Herrera, [facility] hospitalist, who will evaluate the patient for admission following cardiac intervention. WBC, H/H and platelets within normal limits. Chemistry without metabolic acidosis. Electrolytes and LFTs without significant abnormality. Initial high-sensitivity troponin 8.6, within normal limits. BNP 40, within normal limits. Lipase not elevated. TSH within normal limits. COVID-19 RNA, YAS test was negative. Triage Nursing notes reviewed and agree them. Prior medical records reviewed Vital Signs: reviewed Differential diagnosis: Cardiac ischemia, aortic dissection, pulmonary embolism, pneumothorax, pneumonia, pericarditis, myocarditis, esophageal rupture, GERD, cholecystitis, pancreatitis, musculoskeletal, as well as other pathologies. ER treatment provided: See below. Diagnostics interpreted by me: ECG: Normal sinus rhythm, 92 bpm, nonspecific intraventricular conduction delay, ST elevation of lead III and aVF, with reciprocal depression of leads I and aVL. Cardiac Monitoring: An order for continuous cardiac monitoring was placed and demonstrated normal sinus rhythm, 92 bpm, no ectopy. Laboratory studies: See below Imaging studies: See below Consultation(s): Dr. Harding, interventional cardiology Dr. Herrera[facility] HPI: The patient is a pleasant 51-year-old gentleman with a past medical history of CAD with history of CABG and multiple PCI who presents to the emergency department via EMS for acute onset chest pain which occurred shortly after having sexual intercourse with his . Reviewed with EMS crew on medical command call and upon evaluating EKG compared to his prior heart alert was activated as EKG is consistent with inferior ST elevation OK. Patient has been given full dose aspirin by EMS in addition to nitroglycerin and morphine. When he arrived he reported a 5/10 pain. He denies any recent fevers, chills, cough, congestion. He reports he [place] [facility] [place]. Since then he denies any pattern of exertional chest pain. ROS: See above HPI for pertinent positives & negatives. A total of 10 systems reviewed and were otherwise negative. VITALS:See Below PHYSICAL EXAMINATION: GENERAL: Awake, alert, uncomfortable-appearing, in no distress HENT: Normocephalic, atraumatic. Oropharynx unremarkable. EYES: Normal conjunctiva. Sclera non-icteric. NECK: Supple. No nuchal rigidity. FROM. No JVD. RESPIRATORY: Clear to auscultation. CARDIAC: Regular rate, normal rhythm. Extremities warm and well perfused. Pulses equal. ABDOMEN: Soft, non-distended. No tenderness to palpation. No rebound or guard ing. No masses. RECTAL: Deferred. MUSCULOSKELETAL: Chest examination reveals no tenderness. The back is symmetrical on inspection without obvious abnormality. There is no CVA tenderness to palpation. No joint edema. LOWER EXTREMITIES: Calves are equal size bilaterally and non-tender. No edema. No discoloration. NEURO: Normal sensorium. No sensory or motor deficits noted. SKIN: No rash or jaundice noted. ED COURSE: Critical Care: I have personally spent greater than 35 minutes of critical care time in the direct management of this patient. This includes bedside care, interpretation of diagnostic studies, and testing, discussion with consultants, patient, and family members, and other required patient management activities. This 35 minutes is in excess of all separately billable procedures. Von Price MD Past Med/Surg History Medical History CAD (coronary artery disease) CAD (coronary artery disease), [place] coronary artery CHF (congestive heart failure) Chronic lung disease HLD (hyperlipidemia) Hodgkin lymphoma HTN (hypertension) Hyponatremia Hypothyroidism Reactive airway disease Surgical History H/O heart artery stent mutiple H/O heart artery stent History of cardiac cath Hx of CABG times two vessels Family History Mother Multiple sclerosis Social History Smoking Status: Never smoker Do You Dip or Chew Tobacco: Yes; Hx Alcohol Use: No Hx Substance Use: No Preferred Language: Kyrgyz Communication Ability: Effective Plant Safety Leader Required: No Beliefs That Will Affect Care: None marital status: Current Living Situation: Family Current Living Situation Comment: and son Other Information That Helps Us Care for You: No Feels Safe at Home: Yes Safety Concerns: Feels Safe At This Time Assistive Devices: None Allergies Allergies Allergy/AdvReac Type Severity Reaction Status Date / Time TAMIA Inhibitors Allergy Intermediate Cough Verified 02/22/22 15:17 Home Meds Home Medications Medication Instructions Recorded Confirmed amlodipine 5 mg tablet 5 mg PO DAILY 12/12/17 02/22/22 atorvastatin 40 mg tablet 40 mg PO DAILY 12/12/17 02/22/22 levothyroxine 125 mcg tablet 125 mcg PO DAILY 12/12/17 02/22/22 nitroglycerin 0.4 mg sublingual 0.4 mg sublingual DIRECTED PRN 08/18/18 02/22/22 tablet Chest Pain omega-3 acid ethyl esters 1 gram 2 g PO DAILY 08/18/18 02/22/22 capsule (Lovaza) albuterol sulfate 90 mcg/actuation 2 puff inhalation DIRECTED PRN 02/22/22 02/22/22 aerosol inhaler Shortness Of Breath aspirin 81 mg tablet,delayed 81 mg PO DAILY 02/22/22 02/22/22 release cephalexin 500 mg capsule 2,000 mg PO DIRECTED PRN PRIOR 02/22/22 02/22/22 TO DENTAL APPT. clopidogrel 75 mg tablet (Plavix) 75 mg PO DAILY 02/22/22 02/22/22 diltiazem HCl 180 mg 180 mg PO DAILY 02/22/22 02/22/22 capsule,extended release 24 hr insulin glargine 100 unit/mL (3 38 unit subcut DAILY 02/22/22 02/22/22 mL) subcutaneous pen (Basaglar KwikPen U-100 Insulin) isosorbide mononitrate 30 mg 30 mg PO BID 02/22/22 02/22/22 tablet,extended release 24 hr lamotrigine 100 mg tablet 100 mg PO DAILY 02/22/22 02/22/22 losartan 25 mg tablet 25 mg PO DAILY 02/22/22 02/22/22 ranolazine 500 mg tablet,extended 500 mg PO BID 02/22/22 02/22/22 release,12 hr Previous Rx's Medication Instructions Recorded blood sugar diagnostic (OneTouch #100 ea 05/10/21 Verio test strips) lancets 33 gauge (OneTouch Delica #100 ea 05/10/21 Lancets) pen needle, diabetic 32 gauge x #100 ea 05/10/21 5/32" (Pen Needle) Results & Data (ED) Vital Signs Vital Signs - 24 hr 02/22/22 15:17 Temperature 36.6 C Temperature Source Oral Pulse Rate 89 Respiratory Rate 20 Respiratory Effort / Characteristics Non-Labored Spontaneous Respiratory Depth Normal Respiratory Pattern Regular Blood Pressure 161/95 H Blood Pressure Mean 117 Pulse Oximetry 94 Oxygen Delivery Method Nasal Cannula Oxygen Flow Rate 2 Sepsis Recent Fever Within 48 Hours No Sepsis New/Unexplained Change in Mental Status N/A Sepsis Action Taken by Nursing No Action Required Laboratory Data Attestation: I reviewed the patient's lab results. 02/22/22 15:22 02/22/22 15:22 Lab Results 02/22/22 02/22/22 02/22/22 Range/Units 15:16 15:22 15:22 WBC 6.32 (4.8-10.8) K/ul RBC 5.13 (4.63-6.08) M/uL Hgb 15.6 (14.0-18.0) g/dl POC Hgb (14.0-18.0) g/dl Hct 44.2 (40.1-51.0) % POC Hct (42-52) % MCV 86.2 (80.0-100.0) fL MCH 30.4 (25.0-34.0) pg MCHC 35.3 (32.0-36.0) g/dL RDW Std Deviation 39.2 (36.4-46.3) fL RDW Coeff of Dania 12.5 (11.5-14.5) % Plt Count 213 (130-400) K/uL MPV 10.5 (9.4-12.4) fL Immature Gran % (Auto) 1.7 % Neut % (Auto) 75.0 % Lymph % (Auto) 13.1 % [place] % (Auto) 8.5 % Eos % (Auto) 1.1 % Baso % (Auto) 0.6 % Neut # (Auto) 4.73 (1.4-6.5) K/uL Lymph # (Auto) 0.83 L (1.2-3.4) K/uL [place] # (Auto) 0.54 (0.24-0.82) K/uL Eos # (Auto) 0.07 (0-0.50) K/uL Baso # (Auto) 0.04 (0-0.2) K/uL Immature Gran # (Auto) 0.11 H (0.00-0.02) K/uL PT 12.1 H (9.0-12.0) Seconds INR 1.1 (0.9-1.1) APTT 27.0 (21.0-31.0) Seconds PTT Ratio 1.0 POC Sodium (135-144) mmol/L Sodium (136-145) mmol/L POC Potassium (3.3-5.0) mmol/L Potassium (3.5-5.1) mmol/L POC Chloride (101-112) mmol/L Chloride (98-107) mmol/L Carbon Dioxide (21-32) mmol/L POC Total CO2 (24-31) mmol/L Anion Gap (3-11) POC Anion Gap (16-25) mmol/L POC BUN (7-18) mg/dl BUN (6-23) mg/dl Creatinine (0.6-1.4) mg/dl POC Creatinine (0.6-1.3) mg/dl Est Cr Clr Drug Dosing ml/min Est GFR ( Amer) ml/min Est GFR (Non-Af Amer) ml/min BUN/Creatinine Ratio (10-20) Glucose (70-99(Fasting)) mg/dl POC Glucose (other) (70-99) mg/dl Calcium (8.5-10.1) mg/dl POC Ioniz Calcium Zayra (1.12-1.32) mmol/l Magnesium (1.7-2.4) mg/dl Total Bilirubin (0.2-1.0) mg/dl AST (13-39) U/L ALT (7-52) U/L Alkaline Phosphatase (34-104) U/L Total Creatine Kinase (30-223) U/L Troponin I High Sens (0-20) pg/ml B-Natriuretic Peptide (0-100) pg/ml Total Protein (6.0-8.3) gm/dl Albumin (3.4-5.0) gm/dl Globulin (2.5-4.0) gm/dl Albumin/Globulin Ratio (0.9-2) Lipase (11-82) U/L TSH (0.300-4.500) uIu/ml SARS-CoV-2, RNA, NAAT NEGATIVE (NEGATIVE) 02/22/22 02/22/22 02/22/22 Range/Units 15:22 15:22 15:22 WBC (4.8-10.8) K/ul RBC (4.63-6.08) M/uL Hgb (14.0-18.0) g/dl POC Hgb (14.0-18.0) g/dl Hct (40.1-51.0) % POC Hct (42-52) % MCV (80.0-100.0) fL MCH (25.0-34.0) pg MCHC (32.0-36.0) g/dL RDW Std Deviation (36.4-46.3) fL RDW Coeff of Dania (11.5-14.5) % Plt Count (130-400) K/uL MPV (9.4-12.4) fL Immature Gran % (Auto) % Neut % (Auto) % Lymph % (Auto) % [place] % (Auto) % Eos % (Auto) % Baso % (Auto) % Neut # (Auto) (1.4-6.5) K/uL Lymph # (Auto) (1.2-3.4) K/uL [place] # (Auto) (0.24-0.82) K/uL Eos # (Auto) (0-0.50) K/uL Baso # (Auto) (0-0.2) K/uL Immature Gran # (Auto) (0.00-0.02) K/uL PT (9.0-12.0) Seconds INR (0.9-1.1) APTT (21.0-31.0) Seconds PTT Ratio POC Sodium (135-144) mmol/L Sodium 137 (136-145) mmol/L POC Potassium (3.3-5.0) mmol/L Potassium 4.6 (3.5-5.1) mmol/L POC Chloride (101-112) mmol/L Chloride 106 (98-107) mmol/L Carbon Dioxide 23 (21-32) mmol/L POC Total CO2 (24-31) mmol/L Anion Gap 8 (3-11) POC Anion Gap (16-25) mmol/L POC BUN (7-18) mg/dl BUN 19 (6-23) mg/dl Creatinine 1.20 (0.6-1.4) mg/dl POC Creatinine (0.6-1.3) mg/dl Est Cr Clr Drug Dosing 90.6 ml/min Est GFR ( Amer) 79.5 ml/min Est GFR (Non-Af Amer) 68.6 ml/min BUN/Creatinine Ratio 15.8 (10-20) Glucose 159 H (70-99(Fasting)) mg/dl POC Glucose (other) (70-99) mg/dl Calcium 9.2 (8.5-10.1) mg/dl POC Ioniz Calcium Zayra (1.12-1.32) mmol/l Magnesium 2.0 (1.7-2.4) mg/dl Total Bilirubin 0.8 (0.2-1.0) mg/dl AST 21 (13-39) U/L ALT 29 (7-52) U/L Alkaline Phosphatase 63 (34-104) U/L Total Creatine Kinase 52 (30-223) U/L Troponin I High Sens 8.6 (0-20) pg/ml B-Natriuretic Peptide 40 (0-100) pg/ml Total Protein 7.8 (6.0-8.3) gm/dl Albumin 4.7 (3.4-5.0) gm/dl Globulin 3.1 (2.5-4.0) gm/dl Albumin/Globulin Ratio 1.5 (0.9-2) Lipase 15 (11-82) U/L TSH 0.753 (0.300-4.500) uIu/ml SARS-CoV-2, RNA, NAAT (NEGATIVE) 02/22/22 Range/Units 15:26 WBC (4.8-10.8) K/ul RBC (4.63-6.08) M/uL Hgb (14.0-18.0) g/dl POC Hgb 15.6 (14.0-18.0) g/dl Hct (40.1-51.0) % POC Hct 46 (42-52) % MCV (80.0-100.0) fL MCH (25.0-34.0) pg MCHC (32.0-36.0) g/dL RDW Std Deviation (36.4-46.3) fL RDW Coeff of Dania (11.5-14.5) % Plt Count (130-400) K/uL MPV (9.4-12.4) fL Immature Gran % (Auto) % Neut % (Auto) % Lymph % (Auto) % [place] % (Auto) % Eos % (Auto) % Baso % (Auto) % Neut # (Auto) (1.4-6.5) K/uL Lymph # (Auto) (1.2-3.4) K/uL [place] # (Auto) (0.24-0.82) K/uL Eos # (Auto) (0-0.50) K/uL Baso # (Auto) (0-0.2) K/uL Immature Gran # (Auto) (0.00-0.02) K/uL PT (9.0-12.0) Seconds INR (0.9-1.1) APTT (21.0-31.0) Seconds PTT Ratio POC Sodium 140 (135-144) mmol/L Sodium (136-145) mmol/L POC Potassium 4.6 (3.3-5.0) mmol/L Potassium (3.5-5.1) mmol/L POC Chloride 106 (101-112) mmol/L Chloride (98-107) mmol/L Carbon Dioxide (21-32) mmol/L POC Total CO2 22 L (24-31) mmol/L Anion Gap (3-11) POC Anion Gap 18.0 (16-25) mmol/L POC BUN 19 H (7-18) mg/dl BUN (6-23) mg/dl Creatinine (0.6-1.4) mg/dl POC Creatinine 1.2 (0.6-1.3) mg/dl Est Cr Clr Drug Dosing ml/min Est GFR ( Amer) ml/min Est GFR (Non-Af Amer) ml/min BUN/Creatinine Ratio (10-20) Glucose (70-99(Fasting)) mg/dl POC Glucose (other) 159 H (70-99) mg/dl Calcium (8.5-10.1) mg/dl POC Ioniz Calcium Zayra 1.14 (1.12-1.32) mmol/l Magnesium (1.7-2.4) mg/dl Total Bilirubin (0.2-1.0) mg/dl AST (13-39) U/L ALT (7-52) U/L Alkaline Phosphatase (34-104) U/L Total Creatine Kinase (30-223) U/L Troponin I High Sens (0-20) pg/ml B-Natriuretic Peptide (0-100) pg/ml Total Protein (6.0-8.3) gm/dl Albumin (3.4-5.0) gm/dl Globulin (2.5-4.0) gm/dl Albumin/Globulin Ratio (0.9-2) Lipase (11-82) U/L TSH (0.300-4.500) uIu/ml SARS-CoV-2, RNA, NAAT (NEGATIVE) Administered Medications Eptifibatide (Integrilin) 75 mg in 100 mls @ 19.2 mls/hr IV .[id number] [facility]; Protocol Stop: 02/22/22 23:59 Last Admin: 02/22/22 20:59 Dose: 2 mcg/kg/min, 19.2 mls/hr Documented By: SG Co-signed By: LLP Infusion: 02/22/22 20:59 Dose: 2 mcg/kg/min, 19.2 mls/hr Documented By: SG Co-signed By: DEJUAN Infusion: 02/22/22 19:15 Dose: 2 mcg/kg/min, 19.2 mls/hr Documented By: HAIM Co-signed By: CONNOR Admin: 02/22/22 18:44 Dose: 2 mcg/kg/min, 19.2 mls/hr Documented By: HAIM Co-signed By: [id number] Isosorbide Mononitrate (Isosorbide [place] Extended Rel 30 Mg Tabcr) 30 mg PO BID [facility] Stop: 03/24/22 20:59 Last Admin: 02/22/22 20:38 Dose: 30 mg Documented By: CONNOR Metoprolol Tartrate (Metoprolol Tartrate 25 Mg Tab) 25 mg PO BID [facility] Stop: 03/24/22 20:59 Last Admin: 02/22/22 20:38 Dose: 25 mg Documented By: CONNOR Ranolazine (Ranolazine 500 Mg Er Tab) 500 mg PO BID [facility] Stop: 03/24/22 20:59 Last Admin: 02/22/22 20:38 Dose: 500 mg Documented By: CONNOR Discontinued Medications Eptifibatide (Eptifibatide 2 Mg/Ml 10 Ml Vial (Panel Flow Machine Operator Use Only)) Confirm Administered Dose 40 mg IV .STK-MED ONE Stop: 02/22/22 16:05 Last Admin: 02/22/22 16:38 Dose: 20 ml Documented By: BHAKTI Eptifibatide (Eptifibatide 0.75 Mg/Ml 75mg Vial (Panel Flow Machine Operator Use Only)) Confirm Administered Dose 75 mg IV .STK-MED ONE Stop: 02/22/22 16:06 Last Increment: 02/22/22 16:09 Dose: 0.002 mg Documented By: KIARA Fentanyl Citrate (Fentanyl Citrate 100 Mcg/2 Ml Vial) 50 mcg IV NOW STA Stop: 02/22/22 15:18 Last Admin: 02/22/22 15:27 Dose: Not Given Documented By: TONY Fentanyl Citrate (Fentanyl Citrate 100 Mcg/2 Ml Vial) Confirm Administered Dose 100 mcg .ROUTE .STK-MED ONE Stop: 02/22/22 15:19 Last Increment: 02/22/22 15:26 Dose: 50 mcg Documented By: TONY Fentanyl Citrate (Fentanyl Citrate 100 Mcg/2 Ml Vial) Confirm Administered Dose 100 mcg .ROUTE .STK-MED ONE Stop: 02/22/22 15:25 Last Increment: 02/22/22 16:43 Dose: 50 mcg Documented By: KIARA Heparin Sodium (Porcine) (Heparin Sod (Porcine) 1000 Unit/Ml) 5,000 units IV NOW ONE Stop: 02/22/22 15:17 Last Admin: 02/22/22 15:27 Dose: 5,000 units Documented By: TONY Co-signed By: VISHNU Heparin Sodium (Porcine) (Heparin (Porcine) 1000 Unit/Ml 10 Ml (Panel Flow Machine Operator Use Only)) Confirm Administered Dose 10,000 units .ROUTE .STK-MED ONE Stop: 02/22/22 15:24 Last Admin: 02/22/22 16:34 Dose: 5,000 units Documented By: KIARA Heparin Sodium/Sodium Chloride (Heparin In Nss Infusion 1000 Unit/500 Ml (2 U/Ml) Bag) Confirm Administered Dose 3,000 units IV .STK-MED ONE Stop: 02/22/22 15:25 Last Admin: 02/22/22 16:36 Dose: 3,000 units Documented By: BHAKTI Midazolam HCl (Midazolam Hcl 1 Mg/Ml 2ml Vial) Confirm Administered Dose 2 mg .ROUTE .STK-MED ONE Stop: 02/22/22 15:25 Last Increment: 02/22/22 16:43 Dose: 1 mg Documented By: KIARA Nicardipine HCl (Nicardipine Hcl Inj 2.5 Mg/Ml 10 Ml Amp) Confirm Administered Dose 25 mg .ROUTE .STK-MED ONE Stop: 02/22/22 15:24 Last Admin: 02/22/22 16:35 Dose: 25 mg Documented By: BHAKTI Ondansetron HCl (Ondansetron Inj 2 Mg/Ml 2 Ml Vial) 4 mg IV NOW STA Stop: 02/22/22 15:18 Last Admin: 02/22/22 15:26 Dose: 4 mg Documented By: TONY Ticagrelor (Ticagrelor 90 Mg Tab) 180 mg PO ONE ONE Stop: 02/22/22 15:17 Last Admin: 02/22/22 15:27 Dose: 180 mg Documented By: TONY Imaging Data Radiologist's Impression: Chest X-Ray 02/22/22 15:04 XR chest 1V portable CLINICAL HISTORY: Chest pain, nonspecific TECHNIQUE: Single frontal radiograph of the chest was obtained. Comparison: Comparison is made to chest radiograph 01/08/2022 FINDINGS: Median sternotomy wires are unchanged. Fracture lines are unchanged. Plate and screw fixation hardware over the right clavicle is seen. The cardiomediastinal silhouette is normal. Lungs are underinflated but clear. No evidence of pleural effusion or pneumothorax. IMPRESSION: No acute chest disease. ACT 112: Negative or not required by law. Electronically signed by: Mark Sandoval M.D. 02/22/2022 3:49 PM Discharge Plan Visit Data Chief Complaint: Heart Alert Stated Complaint: Chest Pain ED Provider: Von Price Discharge Problem: ST elevation (STEMI) myocardial infarction, Coronary artery disease, Substernal chest pain Patient Disposition: Admitted As Inpatient Discharge Instructions Interventions: ED Discharge Assessment Last Done: 02/22/22 15:50
[2022-02-22 16:18] LABS: Troponin I High Sensitivity 8.6 pg/ml (0-20)
[2022-02-22 16:26] LABS: Albumin Globulin Ratio 1.5 (0.9-2); Albumin Level 4.7 gm/dl (3.4-5.0); BUN Creatinine Ratio 15.8 (10-20); Bilirubin,Total 0.8 mg/dl (0.2-1.0); Calcium 9.2 mg/dl (8.5-10.1); Creatinine Clr Calc Pharmacy 90.6 ml/min; Est GFR (African American) 79.5 ml/min; Est GFR (Non-African American) 68.6 ml/min; Globulin 3.1 gm/dl (2.5-4.0); Potassium 4.6 mmol/L (3.5-5.1); Total Protein 7.8 gm/dl (6.0-8.3)
[2022-02-22] MEDS ORDERED: NITROGLYCERIN SL 0.4 MG/TAB TAB SL PRN (17:58)
[2022-02-22] MEDS ORDERED: ALBUTEROL HFA 8 GM INHALER INH PRN (17:58)
--- NOTE | 2022-02-22 18:01 | Critical Care Consultation ---
Date of Consultation February 22, 2022 Assessment & Plan (1) ST elevation (STEMI) myocardial infarction: (2) Hypothyroidism: (3) Depression: (4) Reactive airway disease: (5) Hodgkin lymphoma: (6) Non-Hodgkin lymphoma in remission: (7) HTN (hypertension): (8) CAD (coronary artery disease): (9) Morbid obesity: Plan -- STEMI S/p angioplasty and thrombus aspiration from proximal RCA No new stents were placed in On Integrilin drip Continue trend troponin -- Hypertension Continue with home blood pressure medication --Diabetes type 2 Continue with ICU hypoglycemia protocol -- Obesity Probable MAXIME Recommend outpatient polysomnography -- History of coronary artery disease with CABG -- Dyslipidemia Continue with atorvastatin --Depression Continue with sertraline and bupropion --Prophylaxis VTE: IPC GI: Pantoprazole Lines: peripheral: Diet:Cardiac low-sodium Plan: Continue to trend troponins. Plan to change Plavix to take as of tomorrow Pain medication Case was discussed with Dr. Harding Please note the above document was generated using voice recognition software. It may contain grammatical, syntax or spelling errors.Any formal questions or concerns about the content, text or information contained within the body of this dictation should be directly addressed to the provider for clarification. History of Present Illness Attending Physician: Abdiel Herrera MD History of Present Illness 51-year-old male presented to the hospital with sternal chest pain and heaviness Past medical history: CABG, RCA PCI with restenosis and repeat cath in 2018, hypertension, dyslipidemia, hypothyroidism, chewing tobacco, Hodgkin's lymphoma s/p radiation 1991, diabetes type 2 Patient was found to have STEMI and was taken to the Cardiopulmonary Technologist Patient had proximal RCA stent thrombosis which was aspirated and thromboplastin was done. No new stents were placed Patient was started on Integrilin and sent to the ICU for further care. At the time of examinations patient's heart rate was in the high 70s. Blood pressure is in 140s. Saturating 96-97% on room air He said he is feeling better. No more chest pain or chest tightness No shortness of breath. No headache, no blurry vision No dysuria, no diarrhea. No nausea or vomiting Social history: Lifetime non-smoker, still chews tobacco. 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 Allergies Allergy/AdvReac Type Severity Reaction Status Date / Time TAMIA Inhibitors Allergy Intermediate Cough Verified 02/22/22 15:17 Home Medications Medication Instructions Recorded Confirmed Type amlodipine 5 mg tablet 5 mg PO DAILY 12/12/17 02/22/22 History atorvastatin 40 mg tablet 40 mg PO DAILY 12/12/17 02/22/22 History levothyroxine 125 mcg tablet 125 mcg PO DAILY 12/12/17 02/22/22 History nitroglycerin 0.4 mg sublingual 0.4 mg sublingual DIRECTED PRN 08/18/18 02/22/22 History tablet Chest Pain omega-3 acid ethyl esters 1 gram 2 g PO DAILY 08/18/18 02/22/22 History capsule (Lovaza) blood sugar diagnostic (OneTouch #100 ea 05/10/21 Rx Verio test strips) lancets 33 gauge (OneTouch Delica #100 ea 05/10/21 Rx Lancets) pen needle, diabetic 32 gauge x #100 ea 05/10/21 Rx 5/32" (Pen Needle) albuterol sulfate 90 mcg/actuation 2 puff inhalation DIRECTED PRN 02/22/22 02/22/22 History aerosol inhaler Shortness Of Breath aspirin 81 mg tablet,delayed 81 mg PO DAILY 02/22/22 02/22/22 History release bupropion HCl 150 mg 24 hr tablet, 150 mg PO DAILY 02/22/22 02/22/22 History extended release cephalexin 500 mg capsule 2,000 mg PO DIRECTED PRN PRIOR 02/22/22 02/22/22 History TO DENTAL APPT. clopidogrel 75 mg tablet (Plavix) 75 mg PO DAILY 02/22/22 02/22/22 History diltiazem HCl 180 mg 180 mg PO DAILY 02/22/22 02/22/22 History capsule,extended release 24 hr insulin glargine 100 unit/mL (3 38 unit subcut DAILY 02/22/22 02/22/22 History mL) subcutaneous pen (Basaglar KwikPen U-100 Insulin) isosorbide mononitrate 30 mg 30 mg PO BID 02/22/22 02/22/22 History tablet,extended release 24 hr lamotrigine 100 mg tablet 100 mg PO DAILY 02/22/22 02/22/22 History losartan 25 mg tablet 25 mg PO DAILY 02/22/22 02/22/22 History ranolazine 500 mg tablet,extended 500 mg PO BID 02/22/22 02/22/22 History release,12 hr Patient History Medical History CAD (coronary artery disease) CAD (coronary artery disease), [place] coronary artery CHF (congestive heart failure) Chronic lung disease HLD (hyperlipidemia) Hodgkin lymphoma HTN (hypertension) Hypothyroidism Reactive airway disease Surgical History H/O heart artery stent mutiple H/O heart artery stent History of cardiac cath Hx of CABG times two vessels Family History Mother Multiple sclerosis Social History Smoking Status: Unknown if ever smoked Hx Alcohol Use: No Hx Substance Use: No Preferred Language: Greenlandic Communication Ability: Effective Hand Sewer Shoes Required: No Beliefs That Will Affect Care: Worship Worship Beliefs: Denominational marital status: Current Living Situation: Family Current Living Situation Comment: and son Feels Safe at Home: Yes Assistive Devices: None Review of Systems Review of Systems: All systems reviewed & are unremarkable except as noted in HPI & below Physical Exam Physical Exam: Constitutional: No acute distress HEENT: EOMI, PERRLA Respiratory system: Good air entry bilaterally, no wheeze, no rhonchi, no crackles CVS: S1-S2 positive, no murmurs or gallops Abdomen: Soft, nontender, nondistended, positive bowel sounds x4, obese Extremities: +2 pulses bilaterally radialis/ dorsalis pedis, no cyanosis, no edema Neuro: Awake alert oriented x3 Psych: Normal mood and affect G/U: No [place] Musculoskeletal: Scar appreciated right clavicle Skin: no rashes, warm and dry Lymphatic: no cervical or axillary lymphadenopathy Results & Data Results & Data ([facility]) Vital Signs (Past 12 Hours) Vital Signs Temp Pulse Resp BP Pulse Ox O2 Del Method O2 Flow Rate 02/22/22 17:25 95 Room Air 02/22/22 15:17 36.6 C 89 20 161/95 H 94 Nasal Cannula 2 Laboratory Results 02/22/22 15:22 02/22/22 15:22 Coding Level of Care Code INP/OBS CONSULT LVL 4, [address] elevation (STEMI) myocardial infarction I21.3 Hypothyroidism E03.9 Depression F32.A Reactive airway disease J45.909 Hodgkin lymphoma C81.90 Non-Hodgkin lymphoma in remission C85.90 HTN (hypertension) I10 CAD (coronary artery disease) I25.10 Morbid obesity E66.01
[2022-02-22] MEDS ORDERED: EPTIFIBATIDE BOLUS/DRIP IV STA (18:13)
[2022-02-22] MEDS ORDERED: STAT IV Infusion **Titration per Protocol STA (18:18)
--- NOTE | 2022-02-22 18:27 | Post Anesthesia Assessment ---
Date of Service February 22, 2022 Post Sedation Assessment Vital Signs Temp Pulse Pulse Resp BP BP Pulse Ox 02/22/22 17:45 81 16 98 02/22/22 17:45 125/77 02/22/22 17:30 85 18 95 02/22/22 17:30 149/84 H 02/22/22 17:16 86 19 95 02/22/22 17:15 151/89 H 02/22/22 17:10 97.7 F 88 20 151/89 H 94 02/22/22 17:25 95 02/22/22 15:17 97.9 F 89 20 161/95 H 94 O2 Del Method O2 Flow Rate 02/22/22 17:45 02/22/22 17:45 02/22/22 17:30 02/22/22 17:30 02/22/22 17:16 02/22/22 17:15 02/22/22 17:10 Room Air 02/22/22 17:25 Room Air 02/22/22 15:17 Nasal Cannula 2 Recovery Score Activity: Moves 4 extremities Respiration: Deep Breath/Cough Circulation: +/-20% PreAnes Value Consciousness: Fully Awake Oxygen Saturation: O2 needed for >90% Discharge Sedation Level of Care: Fast Track Phase II Post Sedation Plan On clinical assessment, the patient appears to have tolerated the sedation without complications. Patient is recovering as anticipated. Patient will continue to be monitored by nursing and may be discharged when sedation discharge criteria are met per below protocol. Upon Completions of procedure up to 15 minutes continue every 5 minute vital signs and the P.A.R. score; then discharge to a Phase I or Fast Track to Phase II per the following guidelines: * Discharge Patient to appropriate Phase II area if PAR is 8 or greater or return to pre- procedure baseline. The post - procedure orders will be as directed. * If PAR score is less than 8 or not return to pre-procedure baseline then patient will follow Phase I monitoring till PAR is reached for Phase II. The Phase I may be done in procedure room or may call to secure a Phase I area. * If naloxone or flumazenil are used for reversal, hold in Phase I for continued monitoring from when last reversal dose was given for a minimum of 60 minutes or longer pending the nurse and/or physician discretion of patient condition before discharge to Phase II. Please call the Sedation Physician to re-evaluate and complete post-note for discharge to Phase II area. Do NOT discharge from procedure sedation or Phase 1 until post- sedation evaluation note is complete by procedure /sedation MD Sedation Discharge Instructions to be given to the patient at discharge to home.
--- NOTE | 2022-02-22 18:29 | Cardiology Consultation ---
Date of Consultation February 22, 2022 Assessment & Plan (1) ST elevation (STEMI) myocardial infarction: Presentation consistent with inferior STEMI and recommend proceeding with emergent cardiac catheterization and likely primary PCI. No apparent contraindications to procedure. Discussed risks, benefits, alternatives of procedure with patient and they are willing to proceed. Given IV heparin and ticagrelor 180 mg in the ED. Further recommendations pending findings of coronary angiography. History of Present Illness Attending Physician: Abdiel Herrera MD History of Present Illness Mr. Bates is a very 51-year-old man here with acute chest pain and ECG concerning for acute ME. Patient seen emergently in the ED after heart alert activated en route. Patient follows with [facility] cardiology, Dr. Worthy, most recently seen on 02/12. He has a complex history of coronary artery disease post two-vessel CABG in 2008 (SVG to LAD, SVG to OM; left radial harvested but not suitable for bypass). Since that time has had multiple interventions to his RCA most recently 01/2022 with ostial stenting and intravascular lithotripsy. Initial left main disease thought secondary to chest wall radiation for treatment of lymphoma. Today states that approximately 1 hour prior to arrival developed substernal chest pain reminiscent of prior acute angina. In route noted to have ST elevations inferiorly. At time of arrival still with active chest pain 6 out of 10. Hemodynamically stable. Given aspirin, Brilinta, heparin in ED. Other medical issues include type 2 diabetes, hypothyroidism, reactive airway disease. Social history: with 1 son. Retired. Never smoker. Allergies Allergy/AdvReac Type Severity Reaction Status Date / Time TAMIA Inhibitors Allergy Intermediate Cough Verified 02/22/22 15:17 Home Medications Medication Instructions Recorded Confirmed Type amlodipine 5 mg tablet 5 mg PO DAILY 12/12/17 02/22/22 History atorvastatin 40 mg tablet 40 mg PO DAILY 12/12/17 02/22/22 History levothyroxine 125 mcg tablet 125 mcg PO DAILY 12/12/17 02/22/22 History nitroglycerin 0.4 mg sublingual 0.4 mg sublingual DIRECTED PRN 08/18/18 02/22/22 History tablet Chest Pain omega-3 acid ethyl esters 1 gram 2 g PO DAILY 08/18/18 02/22/22 History capsule (Lovaza) blood sugar diagnostic (Dexin InteractiveTouch #100 ea 05/10/21 Rx Verio test strips) lancets 33 gauge (OneTouch Delica #100 ea 05/10/21 Rx Lancets) pen needle, diabetic 32 gauge x #100 ea 05/10/21 Rx 5/32" (Pen Needle) albuterol sulfate 90 mcg/actuation 2 puff inhalation DIRECTED PRN 02/22/22 02/22/22 History aerosol inhaler Shortness Of Breath aspirin 81 mg tablet,delayed 81 mg PO DAILY 02/22/22 02/22/22 History release cephalexin 500 mg capsule 2,000 mg PO DIRECTED PRN PRIOR 02/22/22 02/22/22 History TO DENTAL APPT. clopidogrel 75 mg tablet (Plavix) 75 mg PO DAILY 02/22/22 02/22/22 History diltiazem HCl 180 mg 180 mg PO DAILY 02/22/22 02/22/22 History capsule,extended release 24 hr insulin glargine 100 unit/mL (3 38 unit subcut DAILY 02/22/22 02/22/22 History mL) subcutaneous pen (Evernoteaglar Usbek & RicaikPen U-100 Insulin) isosorbide mononitrate 30 mg 30 mg PO BID 02/22/22 02/22/22 History tablet,extended release 24 hr lamotrigine 100 mg tablet 100 mg PO DAILY 02/22/22 02/22/22 History losartan 25 mg tablet 25 mg PO DAILY 02/22/22 02/22/22 History ranolazine 500 mg tablet,extended 500 mg PO BID 02/22/22 02/22/22 History release,12 hr Patient History Medical History CAD (coronary artery disease) CAD (coronary artery disease), [place] coronary artery CHF (congestive heart failure) Chronic lung disease HLD (hyperlipidemia) Hodgkin lymphoma HTN (hypertension) Hyponatremia Hypothyroidism Reactive airway disease Surgical History H/O heart artery stent mutiple H/O heart artery stent History of cardiac cath Hx of CABG times two vessels Family History Mother Multiple sclerosis Social History Smoking Status: Never smoker Do You Dip or Chew Tobacco: Yes; Hx Alcohol Use: No Hx Substance Use: No Preferred Language: Kazakh Communication Ability: Effective Cross Tie Cutter Required: No Beliefs That Will Affect Care: None marital status: Current Living Situation: Family Current Living Situation Comment: and son Other Information That Helps Us Care for You: No Feels Safe at Home: Yes Safety Concerns: Feels Safe At This Time Assistive Devices: None Review of Systems Review of Systems: All systems reviewed & are unremarkable except as noted in HPI & below Physical Exam Physical Exam: General: Uncomfortable HEENT: Sclerae anicteric Lungs: Clear anteriorly Cardiac: Regular rate and rhythm, no murmurs. Vascular: 2+ radial, 1+ right DOGGER Abdomen: Soft, nontender Extremities: Well perfused, no peripheral edema Neuro: Nonfocal Psych: Alert orient x3, normal affect and mood Results & Data ([facility]) Vital Signs (Past 12 Hours) Vital Signs Temp Pulse Pulse Resp BP BP Pulse Ox 02/22/22 17:45 81 16 98 02/22/22 17:45 125/77 02/22/22 17:30 85 18 95 02/22/22 17:30 149/84 H 02/22/22 17:16 86 19 95 02/22/22 17:15 151/89 H 02/22/22 17:10 97.7 F 88 20 151/89 H 94 02/22/22 17:25 95 02/22/22 15:17 97.9 F 89 20 161/95 H 94 O2 Del Method O2 Flow Rate 02/22/22 17:45 02/22/22 17:45 02/22/22 17:30 02/22/22 17:30 02/22/22 17:16 02/22/22 17:15 02/22/22 17:10 Room Air 02/22/22 17:25 Room Air 02/22/22 15:17 Nasal Cannula 2 PG Care Time/CCT Total # of Minutes Spent Total Time Spent with Patient: Total time spent is greater than 50% in coordination of care (as documented) at patient's floor/unit and/or counseling patient: Coding Level of Care Code INP/OBS CONSULT LVL 4, [address] elevation (STEMI) myocardial infarction I21.3
[2022-02-22] MEDS: EPTIFIBATIDE 75 MG/100 ML VIAL IV SCH ×2 (18:44→20:59)
--- NOTE | 2022-02-22 19:04 | Cardiac Catheterization ---
[employer] Data: [employer] Cardiac Status Clinical evaluation leading to the procedure CAD Presenation: STEMI Anginal Classification: CCS IV Diagnostic Physicians Name: Herman Harding MD Closure Device Recommendations: PCI without planned CABG Cardiac Cath Procedure Full Procedure Date February 22, 2022 Pre-Procedure Diagnosis Pre-Procedure Diagnosis: STEMI AUC Score AUC Score: 9 Post-Procedure Diagnosis Post-Procedure Diagnosis: Severe CAD, Successful PCI and Elevated Intracardiac Pressures Procedure(s) Performed Procedure(s) Performed: Coronary Angiography, Left Heart Cath, PTCA, Bypass Graft Angiography and Femoral Artery Angiography Regional Maintenance Manager Herman Harding MD Applied Psychology Professor(s) Kristina Estimated Blood Loss Estimated Blood Loss: 15 Medication(s) Medication(s): Fentanyl, Heparin, Integrilin, Lidocaine 1%, Nicardipine, Nitroglycerin and Versed Medication(s): Ticagrelor Summary of Findings Indication: STEMI/Heart Alert Access: 6 Fr right BELT LINE FEEDER under ultrasound guidance Catheters: JL 3.5, JR4, pigtail. JR4 guide Findings: LM -100% proximal occlusion LAD -medium caliber vessel downstream from SVG anastomosis without significant disease. Retrofilled medium D1 without significant disease. Circumflex -retrofilled from SVG. 80% mid circumflex stenosis. Medium OM1 with mild proximal disease. Small distal AV groove circumflex without disease RCA -dominant, stented from ostium to mid segment. 100% proximal stent thrombosis. SVG to LADwidely patent SVG to [id number] patent. Medium OM 2 without significant disease. Retrofills circumflex. LVEDP -20 -- PCI -- Antithrombotic therapy: Heparin, Integrilin, ticagrelor Procedure: RCA cannulated with JR4 guide Quality Control Lead 50 wire passed across lesion into distal vessel Proximal to mid RCA lesion predilated with 2.5 compliant balloon Flow reestablished following angioplasty. Noted to have significant thrombus in proximal and mid segment stents. IC/IV Integrilin administered [place] IVUS showed well apposed stents without restenosis. Had mid segment thrombus along with proximal thrombus. Calcified earlymid RCA stented area narrowed (diameter ~2.5 mm). Aspiration thrombectomy performed with export catheter, minimal thrombus removed. Proximal to mid RCA stents postdilated aggressively with 3.5 NC balloon IC vasodilators administered for spasm Post procedure AIMEE 3 flow, stents well expanded with minimal residual thrombus and no apparent cardiac complications. Arterial Closure: TR band Summary: 1. Inferior STEMI/100% proximal RCA stent thrombosis - Initial IVUS revealed well apposed stents without in-stent restenosis and no apparent edge complications. Had modest underexpansion of stents at calcified earlymid RCA segment. 2. 100% proximal left main WINDOW AND DOOR INSTALLER 3. Widely patent SVG to LAD, SVG to OM 2 4. Elevated intracardiac filling pressure 4. Successful angioplasty of proximal to mid RCA stent thrombosis with 3.5 NC balloon. Recommendations: Admit to ICU for continued monitoring Continue Integrilin for 6 hours Recommend transition from clopidogrel to ticagrelor Continue dual-antiplatelet therapy indefinitely Trend troponins until peak, Check Echo Consult cardiac Rehab Hemodynamics Rest Ao:: 137/761 17 Final Ao: 120/62/87 LV: 133/20 Recommendations Recommendations: PCI without planned CABG Specimens Specimens: None Radiation Exposure (mGy) 2907 Contrast (mls) 90 Anesthesia moderate [id number] Procedural Complication(s) None Disposition ICU I attest to the content of the Intraoperative Record and any orders documented therein. Any exceptions are noted below. [facility] Card Cath Procedure Codes Cardiac Catheterization Procedure 1: Cardiovascular Cath Procedures: 50042 Coronaries & LHC (+/-LV) & Grafts/IM (arterial & venous) Therapeutic Services & Ancillary Procedure 2: Cardiovascular Tx and Anc Procedures: 19012 Ultrasonic Guidance Vascular Access Procedure 1: Cardiovascular Tx and Anc Procedures: 82987 IV Ultrasound (Coronary or Graft) Moderate Sedation Procedure 1: Sedation/Anesthesia: 51931 Mod Sedation by the same physician;Init15 Min Child Age 5 & Up Procedure 2: Sedation/Anesthesia: 11924 Mod Sedation by the same physician; Ea [id number] Minutes Stenting Procedure 1: Cardiovascular Stent Procedures: 99829 Perc transluminal revascularization of acute sub/total occl, aMI PG Care Time/CCT Total # of Minutes Spent Total Time Spent with Patient: Total time spent is greater than 50% in coordination of care (as documented) at patient's floor/unit and/or counseling patient:
[2022-02-22] MEDS: METOPROLOL TARTRATE 25 MG TAB PO SCH (20:38)
[2022-02-22] MEDS: RANOLAZINE 500 MG ER TAB PO SCH (20:38)
[2022-02-22] MEDS: ISOSORBIDE MONO EXTENDED REL 30 MG TABCR PO SCH (20:38)
[2022-02-23 04:55] LABS: Basophils # (auto) 0.07 K/uL (0-0.2); Basophils % (auto) 1.2 %; Eosinophils # (auto) 0.19 K/uL (0-0.50); Eosinophils % (auto) 3.2 %; Hematocrit (blood only) 39.9 % (40.1-51.0); Hemoglobin 13.6 g/dl (14.0-18.0); Immature Granulocytes # (auto) 0.03 K/uL (0.00-0.02); Immature Granulocytes % (auto) 0.5 %; Lymphocytes # (auto) 1.43 K/uL (1.2-3.4); Lymphocytes % (auto) 23.7 %; Mean Corpuscular Hemoglobin 30.8 pg (25.0-34.0); Mean Corpuscular Hgb Conc 34.1 g/dL (32.0-36.0); Mean Corpuscular Volume 90.3 fL (80.0-100.0); Mean Platelet Volume 10.7 fL (9.4-12.4); Monocytes # (auto) 0.69 K/uL (0.24-0.82); Monocytes % (auto) 11.4 %; Neutrophils # (auto) 3.62 K/uL (1.4-6.5); Platelet Count 194 K/uL (130-400); RDW Coefficient of Variation 12.9 % (11.5-14.5); RDW Standard Deviation 42.1 fL (36.4-46.3); Red Blood Count 4.42 M/uL (4.63-6.08); White Blood Count 6.03 K/ul (4.8-10.8)
[2022-02-23 05:17] LABS: BUN Creatinine Ratio 14.7 (10-20); Calcium 8.1 mg/dl (8.5-10.1); Creatinine Clr Calc Pharmacy 100.2 ml/min; Est GFR (African American) 89.3 ml/min; Est GFR (Non-African American) 77.1 ml/min; Magnesium 2.1 mg/dl (1.7-2.4); Potassium 3.8 mmol/L (3.5-5.1)
--- NOTE | 2022-02-23 05:51 | Electrocardiogram Report ---
Test Reason : Blood Pressure : / mmHG Vent. Rate : 092 BPM Atrial Rate : 092 BPM P-R Int : 160 ms QRS Dur : 122 ms QT Int : 376 ms P-R-T Axes : 039 -56 051 degrees QTc Int : 464 ms Normal sinus rhythm Possible Left atrial enlargement Left axis deviation Non-specific intra-ventricular conduction delay Marked ST abnormality, possible lateral subendocardial injury Abnormal ECG When compared with ECG of 09-MAY-2021 16:02, ST now depressed in Lateral leads Confirmed by Preston Lewis ([id number]) on 02/23/2022 5:51:18 AM Referred By: ED Confirmed By:Preston Lewis
[2022-02-23] MEDS ORDERED: LEVOTHYROXINE SODIUM 125 MCG TABLET PO SCH ×2 (06:30)
[2022-02-23] MEDS ORDERED: LOSARTAN POTASSIUM 25 MG TAB PO SCH (09:00)
[2022-02-23] MEDS ORDERED: PANTOprazole 40 MG TAB PO SCH (09:00)
[2022-02-23] MEDS ORDERED: ASPIRIN 81 MG ECTAB PO SCH (09:00)
[2022-02-23] MEDS ORDERED: ATORVASTATIN 40 MG TAB PO SCH (09:00)
[2022-02-23] MEDS ORDERED: OMEGA-3 (PURIFIED FISH OIL) 1 GM CAP PO SCH (09:00)
[2022-02-23] MEDS ORDERED: TICAGRELOR 90 MG TAB PO SCH (09:00)
[2022-02-23] MEDS ORDERED: buPROPion XL 150 MG TABCR PO SCH (09:00)
[2022-02-23] MEDS ORDERED: amLODIPine BESYLATE 5 MG TAB PO SCH (09:00)
[2022-02-23] MEDS ORDERED: lamoTRIgine 100 MG TAB PO SCH (09:00)
--- NOTE | 2022-02-23 09:08 | Cardiology Consultation ---
Date of Consultation February 23, 2022 History of Present Illness Reason for Consultation: ST elevation myocardial infarction Attending Physician: Jose Luis Lacey MD History of Present Illness Patient was admitted with acute stent thrombosis from home he had contacted the office with crushing chest discomfort. 911 was called he took aspirin and nitroglycerin at home without any improvement. In the emergency room he had ST elevation in the inferior leads with ST depression in 1 and aVL he went to the cardiac catheterization laboratory emergently where he was found to have acute stent thrombosis. His right coronary artery was opened and he had AIMEE-3 flow at the end of the procedure. This morning he feels well he denies any anginal symptoms or heart failure symptoms he denies any palpitations or fluttering lightheadedness or dizziness. He notes he feels back to himself. He denies missing any doses of Plavix over the last number of days. He denies any PND orthopnea. Denies any bleeding bruising dark stools or black stools. The rest of complete her systems otherwise negative Allergies Allergy/AdvReac Type Severity Reaction Status Date / Time TAMIA Inhibitors Allergy Intermediate Cough Verified 02/22/22 15:17 Home Medications Medication Instructions Recorded Confirmed Type amlodipine 5 mg tablet 5 mg PO DAILY 12/12/17 02/22/22 History atorvastatin 40 mg tablet 40 mg PO DAILY 12/12/17 02/22/22 History levothyroxine 125 mcg tablet 125 mcg PO DAILY 12/12/17 02/22/22 History nitroglycerin 0.4 mg sublingual 0.4 mg sublingual DIRECTED PRN 08/18/18 02/22/22 History tablet Chest Pain omega-3 acid ethyl esters 1 gram 2 g PO DAILY 08/18/18 02/22/22 History capsule (Lovaza) blood sugar diagnostic (OneTouch #100 ea 05/10/21 Rx Verio test strips) lancets 33 gauge (OneTouch Delica #100 ea 05/10/21 Rx Lancets) pen needle, diabetic 32 gauge x #100 ea 05/10/21 Rx 5/32" (Pen Needle) albuterol sulfate 90 mcg/actuation 2 puff inhalation DIRECTED PRN 02/22/22 02/22/22 History aerosol inhaler Shortness Of Breath aspirin 81 mg tablet,delayed 81 mg PO DAILY 02/22/22 02/22/22 History release cephalexin 500 mg capsule 2,000 mg PO DIRECTED PRN PRIOR 02/22/22 02/22/22 History TO DENTAL APPT. clopidogrel 75 mg tablet (Plavix) 75 mg PO DAILY 02/22/22 02/22/22 History diltiazem HCl 180 mg 180 mg PO DAILY 02/22/22 02/22/22 History capsule,extended release 24 hr insulin glargine 100 unit/mL (3 38 unit subcut DAILY 02/22/22 02/22/22 History mL) subcutaneous pen (Basaglar KwikPen U-100 Insulin) isosorbide mononitrate 30 mg 30 mg PO BID 02/22/22 02/22/22 History tablet,extended release 24 hr lamotrigine 100 mg tablet 100 mg PO DAILY 02/22/22 02/22/22 History losartan 25 mg tablet 25 mg PO DAILY 02/22/22 02/22/22 History ranolazine 500 mg tablet,extended 500 mg PO BID 02/22/22 02/22/22 History release,12 hr Patient History Medical History CAD (coronary artery disease) CAD (coronary artery disease), [place] coronary artery CHF (congestive heart failure) Chronic lung disease HLD (hyperlipidemia) Hodgkin lymphoma HTN (hypertension) Hyponatremia Hypothyroidism Reactive airway disease Surgical History H/O heart artery stent mutiple H/O heart artery stent History of cardiac cath Hx of CABG times two vessels Family History Mother Multiple sclerosis Social History Smoking Status: Never smoker Do You Dip or Chew Tobacco: Yes; Hx Alcohol Use: No Hx Substance Use: No Preferred Language: Sammarinese Communication Ability: Effective 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 Required: No Beliefs That Will Affect Care: None marital status: Current Living Situation: Family Current Living Situation Comment: and son Other Information That Helps Us Care for You: No Feels Safe at Home: Yes Safety Concerns: Feels Safe At This Time Assistive Devices: None Results & Data ([facility]) Vital Signs (Past 12 Hours) Vital Signs Temp Pulse Resp BP Pulse Ox O2 Del Method 02/23/22 07:11 126/62 02/23/22 07:11 81 21 96 02/23/22 07:00 81 21 96 02/23/22 06:00 74 16 110/64 94 Room Air 02/23/22 05:00 79 22 114/67 95 Room Air 02/23/22 04:00 36.8 C 75 19 123/72 95 Room Air 02/23/22 03:00 82 19 122/67 94 Room Air 02/23/22 02:00 85 15 117/75 92 Room Air 02/23/22 01:00 83 16 121/79 91 Room Air 02/23/22 00:00 36.7 C 84 16 137/72 92 Room Air 02/22/22 23:30 88 17 93 Room Air 02/22/22 23:00 91 H 17 118/68 91 Room Air 02/22/22 22:30 97 H 16 96 Room Air 02/22/22 22:00 92 H 18 130/76 95 Room Air 02/22/22 21:30 96 H 20 96 Room Air he is awake alert and orient x3 is in no acute distress HEENT: 2+ carotid fluctuance carotid bruits Lungs: Clear to auscultation bilaterally no rales rhonchi or wheezing Heart: Regular rate and rhythm no appreciable murmurs rubs or gallops Abdomen: Soft nontender distended positive bowel sounds Extremities: No clubbing cyanosis or edema he has no groin discomfort post catheterization Psychiatric his affect appeared appropriate CATH Findings: LM -100% proximal occlusion LAD -medium caliber vessel downstream from SVG anastomosis without significant disease. Retrofilled medium D1 without significant disease. Circumflex -retrofilled from SVG. 80% mid circumflex stenosis. Medium OM1 with mild proximal disease. Small distal AV groove circumflex without disease RCA -dominant, stented from ostium to mid segment. 100% proximal stent thrombosis. SVG to LADwidely patent SVG to [email or web address] patent. Medium OM 2 without significant disease. Retrofills circumflex. LVEDP -20 -- PCI -- Antithrombotic therapy: Heparin, Integrilin, ticagrelor Procedure: RCA cannulated with JR4 guide Pharmaceutical Officer 50 wire passed across lesion into distal vessel Proximal to mid RCA lesion predilated with 2.5 compliant balloon Flow reestablished following angioplasty. Noted to have significant thrombus in proximal and mid segment stents. IC/IV Integrilin administered [place] IVUS showed well apposed stents without restenosis. Had mid segment thrombus along with proximal thrombus. Calcified earlymid RCA stented area narrowed (diameter ~2.5 mm). Aspiration thrombectomy performed with export catheter, minimal thrombus removed. Proximal to mid RCA stents postdilated aggressively with 3.5 NC balloon IC vasodilators administered for spasm Post procedure AIMEE 3 flow, stents well expanded with minimal residual thrombus and no apparent cardiac complications. IMPRESSIONS: 1. ST elevation myocardial infarction secondary to acute stent thrombosis of the right coronary artery 2. Recent complex intervention involving the proximal and mid RCA at [facility] with ostial stenting and balloon lithotripsy for severe in-stent restenosis 3. Coronary artery disease status post coronary bypass grafting x2 with a KEENAN to the LAD and SVG to the OM 4. Premature coronary disease secondary to radiation therapy to his chest 5. Diabetes mellitus type 2 6. Hypertension 7. Hyperlipidemia Tyler notes that he did not miss any doses of Plavix up until this event. I appreciate Dr. Harding's superb care of intervening quickly on his stent thrombosis. His highly sensitive troponin is significantly elevated but if you correct that for a traditional troponin and actually is consistent with a small heart attack. Tyler feels well today. He will need to be on aspirin for life and now Brilinta for life. I did discuss with him that Brilinta is expensive his can case picker a coupon card in the office so that he can get it at a discount with commercial insurance. I would prefer that he stay overnight again tonight given he is less than 24 hours out from his heart attack. He is adamant that he does not wish to stay in the hospital another night and that he has been through this multiple times. He understands there is a risk of leaving early including recurrent GA, malignant potentially fatal arrhythmias, heart failure and . The rest of his medical regimen should remain the same. He denies any groin discomfort I would have him ambulate in the hallways. If he is ambulating well and feels well this afternoon given his refusal to stay overnight he could go home this afternoon. We discussed that he cannot miss a dose of aspirin or Brilinta ever given the fact we know that he can have stent thrombosis.
[2022-02-23] MEDS: METOPROLOL TARTRATE 25 MG TAB PO SCH (09:13)
[2022-02-23] MEDS: RANOLAZINE 500 MG ER TAB PO SCH (09:13)
[2022-02-23] MEDS: ISOSORBIDE MONO EXTENDED REL 30 MG TABCR PO SCH (09:13)
[2022-02-23] MEDS ORDERED: TICAGRELOR 90 MG HOME PACK PO STA (09:16)
[2022-02-23] MEDS ORDERED: TICAGRELOR 90 MG HOME PACK PO ONE (10:15)
[2022-02-23] MEDS ORDERED: TICAGRELOR 90 MG HOME PACK PO SCH (10:15)
[2022-02-23] MEDS ORDERED: INSULIN ASPART PER UNIT SC SCH (11:30)
--- NOTE | 2022-02-23 11:53 | Critical Care Progress Note ---
Date of Service February 23, 2022 Assessment & Plan (1) ST elevation (STEMI) myocardial infarction: (2) Hypothyroidism: (3) Depression: (4) Reactive airway disease: (5) Hodgkin lymphoma: (6) Non-Hodgkin lymphoma in remission: (7) HTN (hypertension): (8) CAD (coronary artery disease): (9) Morbid obesity: Plan -- STEMI S/p angioplasty 02/22/2022 and thrombus aspiration from proximal RCA No new stents were placed in On Integrilin drip Continue trend troponin -- Hypertension Continue with home blood pressure medication --Diabetes type 2 Continue with ICU hypoglycemia protocol -- Obesity Probable MAXIME Recommend outpatient polysomnography -- History of coronary artery disease with CABG -- Dyslipidemia Continue with atorvastatin --Depression Continue with sertraline and bupropion --Prophylaxis VTE: IPC GI: Pantoprazole Lines: peripheral Diet:Cardiac low-sodium Plan: In/out: Positive 584 Patient on ticagrelor, beta-jono, ARB, statin. Continue with the same regimen Patient hemodynamically stable to be downgrade to medical floor Please note the above document was generated using voice recognition software. It may contain grammatical, syntax or spelling errors.Any formal questions or concerns about the content, text or information contained within the body of this dictation should be directly addressed to the provider for clarification. Admission and Anticipated Discharge Date Admission Date: February 22, 2022 Subjective Patient seen and examined at bedside. No acute distress, no adverse events o vernight. The right groin pain is gone. Denies any chest pain, no shortness of breath Fair appetite, no nausea or vomiting Has been off Integrilin drip. Review of Systems Review of Systems: All systems reviewed & are unremarkable except as noted in Subjective Physical Exam Physical Exam: Constitutional: No acute distress HEENT: EOMI, PERRLA Respiratory system: Good air entry bilaterally, no wheeze, no rhonchi, no crac kles CVS: S1-S2 positive, no murmurs or gallops Abdomen: Soft, nontender, nondistended, positive bowel sounds x4, obese Extremities: +2 pulses bilaterally radialis/ dorsalis pedis, no cyanosis, no edema Neuro: Awake alert oriented x3 Psych: Normal mood and affect G/U: No [place] Musculoskeletal: Scar appreciated right clavicle Skin: no rashes, warm and dry Lymphatic: no cervical or axillary lymphadenopathy Results & Data Results & Data ([facility]) Vital Signs (Past 12 Hours) Vital Signs Temp Pulse Resp BP Pulse Ox O2 Del Method 02/23/22 10:00 85 15 02/23/22 09:00 81 15 95 Room Air 02/23/22 09:00 157/98 H 02/23/22 08:00 83 21 93 02/23/22 08:00 140/88 02/23/22 07:11 126/62 02/23/22 07:11 81 21 96 02/23/22 07:00 81 21 96 02/23/22 06:00 74 16 110/64 94 Room Air 02/23/22 05:00 79 22 114/67 95 Room Air 02/23/22 04:00 36.8 C 75 19 123/72 95 Room Air 02/23/22 03:00 82 19 122/67 94 Room Air 02/23/22 02:00 85 15 117/75 92 Room Air 02/23/22 01:00 83 16 121/79 91 Room Air 02/23/22 00:00 36.7 C 84 16 137/72 92 Room Air Laboratory Results 02/23/22 04:16 02/23/22 04:16 Coding Level of Care Code 86847 SUB INP/OBS CARE 2/35MIN Diagnoses ST elevation (STEMI) myocardial infarction I21.3 Hypothyroidism E03.9 Depression F32.A Reactive airway disease J45.909 Hodgkin lymphoma C81.90 Non-Hodgkin lymphoma in remission C85.90 HTN (hypertension) I10 CAD (coronary artery disease) I25.10 Morbid obesity E66.01
--- NOTE | 2022-02-23 13:56 | Discharge Summary ---
Date of Service February 23, 2022 Admission HPI Per Admitting Provider Tyler is a 51-year-old male with a past medical history of CABG (SVG LAD/OM 2), RCA PCI with restenosis and repeat cath 2017, hypertension, hyperlipidemia, hypothyroidism, smokeless tobacco use, Hodgkin's lymphoma s/p radiation 1991, and type 2 diabetes mellitus who presented to the hospital as a heart alert. Patient was engaged in sexual intercourse with his when he developed sudden onset sternal chest pain, 8/10 in the center of the chest with a heavy quality at time of provider assessment. Patient did receive aspirin and nitro in route to the emergency department. Was taken to [facility] emergently for PCI. Given heparin 5000 unit bolus and Brilinta 180 mg p.o. in ER. Pt seen at bedside at time of heart alert. No SoB. Pt was having intercourse and developed severe chest pain. Currently 8/10 at bedside under sternum. No LH/Dizziness. Took meds this AM. Taken urgently to lab nurse for STEMI Seen post procedure. Complete resolution of chest pain. No CP/CP/SOB/Difficulty breathing/syncope/presyncope at reassessment. Denies leg swelling, worsening angina prior to sudden CP. Notes has had several similar episodes with recurrent caths and subsequent resolution of pain in the past. NO concerns at bedside. No bleeding postop. Clarifies that he DOES take ozempic weekly, unclear of dose. Good outpt bsg control. Does NOT take BB due to tolerance, prescribed but stopped taking due to averse effects. Discussed this as outpt, switched to diltiazem on risk/beneifts discussion at apptment. No leukocytosis. Hemoglobin 15.6. Creatinine with normal baseline less than 1, admitting creatinine 1.2. Ionized calcium 1.14. Last [facility] outpatient note reviewed 10/2021:. DM2 with A1c 09/2025.6%, normal urine microalbumin. Good control on Basaglar 38 units nightly, no SGLT2 noted --> pt clarifies recently started Ozempic with good control in last 3 months. Dyslipidemia on statin Lamotrigine was restarted 10/2021 Last cardiology note 01/2022: CAD with severe left main disease with bypass surgery 2008 with saphenous vein graft to LAD, vein graft to marginal CAD with initial RCA stent prior to 2002, repeat catheterization at [facility] with 40% in-stent thrombosis Cardiac catheterization 2013 with 90% left main lesion, 70% lesion in ramus intermedius, patent vein graft to LAD and circumflex. 30% proximal RCA stenosis and mid RCA with severe in-stent stenosis with 80% lesion for which she received drug-eluting stents. Cardiac cath 20 1890% RCA lesion with 30-40% in-stent restenosis of mid RCA with repeat ALEXANDER. Cardiac catheterization 07/2019 patent grafts to LAD and OM with severe ostial RCA in-stent restenosis of RCA 80%, moderate disease in mid RCA. Cardiac cath 01/2022 with PCI of both ostial and mid RCA with ALEXANDER and intravascular lithotripsy. Echo 06/2021 normal LV size and function without wall motion abnormalities. Per 01/2022 do not reduce Imdur to 30 twice daily, Ozempic continued with recommendations to uptitrate with goals of additional weight loss. Amlodipine was stopped and switched to diltiazem 180 mg. Patient felt tired on beta-blockers. Medical History: Reviewed Medications: Reviewed Surgical History: Reviewed Allergies: Reviewed Social History: Reviewed Code Status: Reviewed Principal Diagnosis STEMI Discharge Exam The patient is awake, alert and oriented 3, well developed and well nourished, normocephalic and atraumatic, lying in bed and in no acute distress. HEENT--PERRL, EOMI, mucous membranes and oropharynx mildly dry Neck--supple. No JVD. No bruits. Thyroid normal, trachea midline, no adenopathy. Heart--normal S1 and S2. No murmurs, rubs or gallops. Lungs--clear bilaterally, no respiratory distress, no accessory muscle use. Abdomen--normal bowel sounds and soft. Mild epigastric and left sided abdominal pain Extremities--no cyanosis or clubbing. No edema. Dermatologic--normal skin turgor, normal color, no abnormal lymph nodes, no rash . Neurologic--cranial nerves II through XII grossly intact. Rheumatologic--normal range of motion. Psychiatric--normal affect. Discharge Data Allergies Allergy/AdvReac Type Severity Reaction Status Date / Time TAMIA Inhibitors Allergy Intermediate Cough Verified 02/22/22 15:17 Consultations 02/22/22 15:53 ED Decision to Admit Stat 02/22/22 16:43 Consult [employer] Finisher Routine 02/23/22 08:12 Consult Cardiology Routine Procedures Performed Operation Date: 02/22/22 15:30 Actual Procedures s Cineradiography w/Routine Exam - Boo Harding MD p Aspiration/PCI w/ALEXANDER for Stemi - Boo Harding MD s Cath, Cors with Grafts (no LV) - MD devin Guthrie IVUS Coronary Single Vessel - MD devin Guthrie Placement Art Occlusive Device - MD devin Guthrie Ultrasound Vascular Access - Boo Harding MD Ordered Studies 02/22/22 15:15 CL Cath Imgs for PACS use only Stat 02/22/22 16:12 CL IVUS Coronary Single Vessel Routine Hospital Course (1) ST elevation (STEMI) myocardial infarction: Inferior STEMI: Last cardiology note 01/2022: CAD with severe left main disease with bypass surgery 2008 with saphenous vein graft to LAD, vein graft to marginal CAD with initial RCA stent prior to 2002, repeat catheterization at [facility] with 40% in-stent thrombosis Cardiac catheterization 2013 with 90% left main lesion, 70% lesion in ramus intermedius, patent vein graft to LAD and circumflex. 30% proximal RCA stenosis and mid RCA with severe in-stent stenosis with 80% lesion for which she received drug-eluting stents. Cardiac cath 1890% RCA lesion with 30-40% in-stent restenosis of mid RCA with repeat ALEXANDER. Cardiac catheterization 07/2019 patent grafts to LAD and OM with severe ostial RCA in-stent restenosis of RCA 80%, moderate disease in mid RCA. Cardiac cath 01/2022 with PCI of both ostial and m id RCA with ALEXANDER and intravascular lithotripsy. Echo 06/2021 normal LV size and function without wall motion abnormalities. Per 01/2022 do not reduce Imdur to 30 twice daily, Ozempic continued with recommendations to uptitrate with goals of additional weight loss. Amlodipine was stopped and switched to diltiazem 180 mg. Patient felt tired on beta-blockers. Acute chest pain, heart alert History of CABG (SVG LAD/OM 2) 2008, RCA PCI with restenosis and repeat cath 2017. - TTE 06/21/2020: Normal LV size and systolic function. No regional wall motion abnormalities. EF 65%. Mild concentric LVH. Grade 1 diastolic dysfunction of the left ventricle, indeterminate left atrial pressure. Normal RV size with reduced systolic function. EKG: Inferior stemi Initial troponin: 8.6 Optimize potassium 4.0, magnesium 2.0 BNP: 40 Lipase: Normal TSH: Normal Atorvastatin, isosorbide, DAPT. Continue ozempic Ranexa 500 mg p.o. twice daily History of smokeless tobacco use S/p cath 02/22/2022. Proximal RCA in-stent thrombosis treated with angioplasty and aspiration, no new stents. Complete integrillin drip, trend trop overnight. Switch to aspirin/Brilinta DAPT in AM. Transferred to ICU for recovery. - Pt BB intolerant as outpatient and refused to take. Switched to diltiazem as outpt. 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 Tolerating ozempic well, resume as outpt Goal BSG 260635 - Repeat A1C pending Depression - Sertraline, buproprion discontinued per pt - Continue CORRESPONDENCE ANALYST lamotrigine Hypothyroidism TSH wnl Continue CORRESPONDENCE ANALYST Synthroid 125 mcg daily Reactive airway disease, mild obstructive lung disease 2/2 radiation therapy from Hodgkin lymphoma Albuterol as needed Previously on Advair, this was discontinued as outpatient. Follow clinically for wheezing, none on admission Hypertension Amlodipine 5 mg daily Diltiazem 180 mg p.o. daily Beta-jono interolerant per pt Losartan 25 mg daily Diet: N.p.o. CODE STATUS: Full code Disposition ; Discharge home. Patient refused further hospital stay post surgery despite several pleas from cardiology (2) Hx of CABG: (3) CHF (congestive heart failure): (4) HLD (hyperlipidemia): (5) HTN (hypertension): (6) H/O heart artery stent: (7) CAD (coronary artery disease): (8) Diabetes mellitus: (9) Depression: (10) Hypothyroidism: Plan discharge home Home Health Attestation I certify that this patient is under my care and that I, or a physicians recycling assistant working with me, had a face to-face encounter that meets the home health [id number] encounter requirements with this patient. The encounter with the patient was in whole, or in part, for the following medical condition, which is the primary reason for home health care (list medical condition): I certify that, based on my findings, the following services are medically necessary home health services: My clinical findings support the need for the above services because: Further, I certify that my clinical findings support that this patient is homebound (i.e. absences from home require considerable and taxing effort and are for medical reasons or gnosticist services or infrequently or of short duration when for other reasons) because: Certification for Home Health Services: Based on the above findings, I certify that this patient is confined to the home and needs intermittent fci care, physical therapy and/or speech therapy or continues to need occupational therapy. The patient is under my care, and I have initiated the establishment of the plan of care. This patient will be followed by a physician who will periodically review the plan of care. 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 omega-3 acid ethyl esters [Lovaza] 1 gram Capsule 2 g PO DAILY diltiazem HCl 180 mg capsule,extended release 24hr 180 mg PO DAILY isosorbide mononitrate 30 mg tablet extended release 24 hr 30 mg PO BID aspirin 81 mg Tablet,Delayed Release (Dr/Ec) 81 mg PO DAILY losartan 25 mg tablet 25 mg PO DAILY albuterol sulfate 90 mcg/actuation HFA aerosol inhaler 2 puff INHALATION DIRECTED PRN (Reason: Shortness Of Breath) lamotrigine 100 mg tablet 100 mg PO DAILY ranolazine 500 mg tablet extended release 12 hr 500 mg PO BID insulin glargine [Basaglar KwikPen U-100 Insulin] 100 unit/mL (3 mL) insulin pen 38 unit SUBCUT DAILY (DME) pen needle, diabetic [Pen Needle] 32 gauge x 5/32" needle See Rx Instructions .Route Qty: 100 0RF Rx Instructions: As directed (DME) OneTouch Verio test strips Strip See Rx Instructions .Route Qty: 100 0RF Rx Instructions: As directed (DME) lancets [OneTouch Delica Lancets] 33 gauge misc See Rx Instructions .Route Qty: 100 0RF Rx Instructions: As directed Discontinued clopidogrel [Plavix] 75 mg Tablet 75 mg PO DAILY cephalexin 500 mg capsule 2,000 mg PO DIRECTED PRN (Reason: PRIOR TO DENTAL APPT.) Discharge Orders: Discharge Order (Routine); Ordered 02/23/22 Ordered By: Jose Luis Lacey Admission Data Admit Date/Time: 02/22/22 16:43 Attending Provider: Jose Luis Lacey Admit Provider: Abdiel Herrera Primary Care Provider: Jovanny Deras Other Providers: Abdiel Herrera ; Eleonora Glass ; Amauri Worthy Other Interventions: Discharge Summary Assessment (RN) Last Done: 02/23/22 13:51 Coding Level of Care Code HOSP INP/OBS DISCH >[address] elevation (STEMI) myocardial infarction I21.3 Hx of CABG Z95.1 CHF (congestive heart failure) I50.9 HLD (hyperlipidemia) E78.5 HTN (hypertension) I10 H/O heart artery stent Z95.5 CAD (coronary artery disease) I25.10 Diabetes mellitus E11.9 Depression F32.A Hypothyroidism E03.9 Time Spent (min) 35
--- NOTE | 2022-02-23 14:21 | XCELERA ---
[id number]
== END 2022-02-23 14:46 | disposition home or self-care (01) | DRG 250 ==
LOC: ED 15:11 → CC 15:38 → 1E 16:43 → SUATTDRO 16:43
PROC: CLB.CCG (2022-02-22 15:30)